=== PATIENT | male | born 1965 | race Caucasian/White ===

== ENCOUNTER 2022-03-26 12:56 | Inpatient (IN) ==
[2022-03-26 13:11] LABS: POC Calcium, Ionized 1.02 (1.16-1.32); POC Creatinine 1.1 (0.6-1.2); POC Potassium 5.5 (3.3-5.1)
[2022-03-26] MEDS ORDERED: 0.9 % SODIUM CHLORIDE 1,000 ML IV ONE (13:25)
--- NOTE | 2022-03-26 13:33 | Emergency Department Note ---
Weakness HPI General Chief complaint: Weakness Stated complaint: faiure to thrive Time Seen by Provider: 03/26/22 13:01 Source: EMS Mode of arrival: EMS Limitations: no limitations History of Present Illness HPI Narrative: Narrative: This is a 57-year-old male with a history of cirrhosis and elevated ammonia presents emergency department with his sister with concerns of failure to thrive weakness and confusion. About 2 weeks ago they decreased his lactulose from 4 times a day to 1 time a day since he was having low potassium. The patient was able to get out of bed yesterday but today he is unable since he is so weak. The sister also says that he was confused this morning and thought that Osman was president. Here in the emergency department he is alert and oriented and knows that he is in [place] as 2021 and that it is Tuesday in March. He denies headache, blurry vision, chest pain, shortness of breath, abdominal pain, fever, chills, nausea, vomiting, diarrhea, black or bloody stools, dysuria, urinary frequency or urgency. Related Data Home Medications Medication Instructions Recorded Confirmed cholecalciferol (vitamin D3) 25 25 mcg PO QDAY 07/14/20 03/10/22 mcg (1,000 unit) capsule methocarbamol 750 mg tablet 750 mg PO 3-4XD PRN 11/30/21 03/10/22 amiloride 5 mg tablet 5 mg PO QID 01/05/22 03/10/22 lactulose 10 gram/15 mL oral 45 ml PO QID 01/05/22 03/10/22 solution (Constulose) Previous Rx's Medication Instructions Recorded blood sugar diagnostic (OneTouch #100 ea 08/12/21 Verio test strips) metformin 500 mg tablet,extended 500 mg PO QDAY 90 days #90 tabs 10/01/21 release 24 hr furosemide 40 mg tablet (Lasix) 40 mg PO QAM #30 tabs 12/07/21 omeprazole 20 mg capsule,delayed See Rx Instructions .Route 01/26/22 release .COMPLEX #90 caps SHOWER CHAIR #1 ea 03/10/22 Allergies Allergy/AdvReac Type Severity Reaction Status Date / Time No Known Drug Allergies Allergy Verified 03/26/22 13:02 Review of Systems ROS ROS Narrative: Narrative: All systems ED: reviewed and negative except as stated. PFSH Narrative Patient History Narrative: Narrative: Medical/Surgical/Family History All Active Problems (Updated 03/26/22 @ 16:42 by Brandon Wade PA-C) Acute hepatic encephalopathy (Acute) Acute hyponatremia (Acute) Acute hypokalemia (Acute) Mclean catheter in place (Acute) Non-alcoholic fatty liver disease (Acute) Hyponatremia (Acute) Increased ammonia level (Acute) Colitis (Acute) Ascites (Acute) Cirrhosis (Acute) Localized swelling of both lower extremities (Acute) Hypertension (Acute) Diabetes mellitus (Acute) Thrombocytopenia (Acute) Hyperlipidemia (Chronic) GERD (gastroesophageal reflux disease) (Chronic) Elevated liver enzymes (Acute) Edema (Acute) Strain of lumbar region (Acute) BMI 35.0-35.9,adult (Acute) Erectile dysfunction (Acute) Degenerative disc disease, cervical (Chronic) History of cholecystectomy (Chronic ~2004) Depression (Chronic) Anxiety (Chronic) Erectile dysfunction of non-organic origin (Chronic) Knee pain (Chronic) Low back pain (Chronic) Neuropathy (Chronic) Lumbar herniated disc (Chronic) Hemorrhoids, external (Chronic) Learning disability (Chronic) Bilateral lower extremity edema (Chronic) Rash and other nonspecific skin eruption (Chronic) Chronic rhinitis (Chronic) Medical History Anxiety Ascites Bilateral lower extremity edema Chronic rhinitis Cirrhosis Depression Diabetes mellitus Erectile dysfunction of non-organic origin GERD (gastroesophageal reflux disease) Hemorrhoids, external Hyperlipidemia Knee pain Learning disability Low back pain Lumbar herniated disc Neuropathy Rash and other nonspecific skin eruption Surgical History History of cholecystectomy (~2004) Family History Mother , age 69 HBP (high blood pressure) Lung cancer Father , age 73 Diabetes HBP (high blood pressure) Grandmother HBP (high blood pressure) maternal and paternal Stroke maternal Glaucoma maternal Osteoporosis maternal Grandfather HBP (high blood pressure) maternal Diabetes paternal Social History Alcohol Intake Frequency: holiday/special occasion only Substance Use: does not use Exam Narrative Narrative: Narrative: General: Alert, in no acute distress, patient does appear weak and needs help sitting up and standing up when I listen to his lungs. Head: No trauma normocephalic Eyes: EOMs intact no scleral icterus or scleral injection Neck: Full range of motion, no midline tenderness ENT: Moist mucous membranes, uvula is midline. No sign of peritonsillar abscess or Prudence's angina. Cardiovascular: Regular rate and rhythm no murmur Respiratory: Clear to auscultation bilaterally. No rhonchi rales or wheezes, no respiratory distress Abdomen pelvis: Abdomen is soft and nontender to palpation. There is no guarding no rebound tenderness. Negative Lane sign. No tenderness over McBurney's point. Neuro: Patient is alert and oriented x3 Psych: Normal affect, normal mood Skin: Warm, no rash, normal color General Limitations: no limitations Course Vital Signs Vital signs: Vital Signs Temperature 97.8 F 03/26/22 13:00 Pulse Rate 90 03/26/22 13:00 Respiratory Rate 16 03/26/22 13:00 Blood Pressure 104/61 03/26/22 13:00 Pulse Oximetry (%) 98 03/26/22 13:00 Oxygen Delivery Method 03/26/22 13:00 Temperature 97.8 F 03/26/22 13:00 Pulse Rate 90 03/26/22 15:15 Respiratory Rate 13 03/26/22 16:15 Blood Pressure 107/66 03/26/22 16:15 Pulse Oximetry (%) 99 03/26/22 15:15 Oxygen Delivery Method 03/26/22 13:00 [facility] MDM Narrative Medical decision making narrative: Narrative: On [id number] Chem-8 the patient does have a hyperkalemia which is mild and hyponatremia. At this point we do not need to give calcium gluconate but will start with 1 L of normal saline. CBC mild anemia BUN is slightly elevated creatinine is normal Magnesium Lipase mildly elevated Hepatic panel stable Ammonia elevated at 91 UA suggestive of urinary tract infection but patient not having any urinary symptoms. I did discuss these findings with the hospitalist Dr. Castañeda EKG normal sinus rhythm no hyperacute T waves Chest x-ray normal chest x-ray. I have given lactulose here in the emergency department. Along with the 1 L of normal saline for the hyperkalemia and for possible dehydration with elevated BUN. Also this can help with the hyponatremia as well. We will admit the patient for hepatic encephalopathy, mild hyperkalemia and hyponatremia. I spoke with the hospitalist Dr. Castañeda who agreed to admit the patient for fu rther evaluation and treatment. Lab Data Result diagrams: 03/26/22 13:29 Labs: Lab Results 03/26/22 03/26/22 03/26/22 Range/Units 13:09 13:28 13:28 WBC (4.5-11.0) K/mcL RBC (4.63-6.08) M/mcL Hgb (13.7-17.5) g/dL Hct (40.1-51.0) % POC Hct 29.0 L (41-55) MCV (80.0-100.0) fL MCH (26.0-34.0) pg MCHC (31.0-36.0) g/dL RDW (11.5-14.5) % Plt Count (140-440) K/mcL MPV (8.8-12.5) fL Immature Gran % (Auto) (0.0-0.5) % Neut % (Auto) (38.0-78.0) % Lymph % (Auto) (15.5-49.0) % [place] % (Auto) (1.0-12.0) % Eos % (Auto) (0.0-7.0) % Baso % (Auto) (0.0-2.0) % Lymph # (Auto) (1.50-4.80) K/mcL [place] # (Auto) (0.10-0.90) K/mcL Eos # (Auto) (0.00-0.70) K/mcL Baso # (Auto) (0.00-0.30) K/mcL Immature Gran # (0.00-0.05) K/mcl Absolute Neutrophils (1.80-8.00) K/mcL PT 18.3 H (11.9-14.5) sec INR 1.5 H (0.9-1.1) APTT 41.5 H (20.0-37.0) sec POC Sodium 126 L (133-145) POC Potassium 5.5 H (3.3-5.1) POC Chloride 98 (96-108) POC Total CO2 21.0 L (22-30) POC BUN 24 H (6-20) POC Creatinine 1.1 (0.6-1.2) POC Glucose 89 (70-105) POC WB Ioniz Calcium 1.02 L (1.16-1.32) Magnesium 1.7 (1.6-2.5) mg/dL Total Bilirubin 2.4 H (0.1-1.0) mg/dL Direct Bilirubin 1.2 H (<0.3) mg/dL AST 159 H (<40) U/L ALT 92 H (<40) U/L Alkaline Phosphatase 337 H (39-117) U/L Ammonia (16-60) umol/L Total Protein 6.8 (5.9-8.4) gm/dL Albumin 2.0 L (3.2-5.2) gm/dL Globulin 4.8 H (2.2-3.7) gm/dL Lipase 115 H (7-60) U/L Urine Color Urine Appearance (Clear) Urine pH (5.0-9.0) Ur Specific [place] (1.000-1.035) Urine Protein (Negative) mg/dL Urine Glucose (UA) (Negative) mg/dL Urine Ketones (Negative) mg/dL Urine Occult Blood (Negative) mg/dL Urine Nitrate (Negative) Urine Bilirubin (Negative) mg/dL Urine Urobilinogen mg/dL Ur Leukocyte Esterase (Negative) /uL Urine RBC (0-3) /hpf Urine WBC (0-4) /hpf Ur Squamous Epith Cells (0-4) /hpf Urine Bacteria (0) /hpf Hyaline Casts (0-2) /lph Urine Mucus (None) /hpf Ur Culture Indicated? 03/26/22 03/26/22 03/26/22 Range/Units 13:29 13:34 14:20 WBC 8.8 (4.5-11.0) K/mcL RBC 2.85 L (4.63-6.08) M/mcL Hgb 10.2 L (13.7-17.5) g/dL Hct 28.8 L (40.1-51.0) % POC Hct (41-55) MCV 101.1 H (80.0-100.0) fL MCH 35.8 H (26.0-34.0) pg MCHC 35.4 (31.0-36.0) g/dL RDW 14.8 H (11.5-14.5) % Plt Count 73 L (140-440) K/mcL MPV 10.0 (8.8-12.5) fL Immature Gran % (Auto) 0.9 H (0.0-0.5) % Neut % (Auto) 72.3 (38.0-78.0) % Lymph % (Auto) 14.9 L (15.5-49.0) % [place] % (Auto) 10.3 (1.0-12.0) % Eos % (Auto) 1.3 (0.0-7.0) % Baso % (Auto) 0.3 (0.0-2.0) % Lymph # (Auto) 1.31 L (1.50-4.80) K/mcL [place] # (Auto) 0.90 (0.10-0.90) K/mcL Eos # (Auto) 0.11 (0.00-0.70) K/mcL Baso # (Auto) 0.03 (0.00-0.30) K/mcL Immature Gran # 0.08 H (0.00-0.05) K/mcl Absolute Neutrophils 6.34 (1.80-8.00) K/mcL PT (11.9-14.5) sec INR (0.9-1.1) APTT (20.0-37.0) sec POC Sodium (133-145) POC Potassium (3.3-5.1) POC Chloride (96-108) POC Total CO2 (22-30) POC BUN (6-20) POC Creatinine (0.6-1.2) POC Glucose (70-105) POC WB Ioniz Calcium (1.16-1.32) Magnesium (1.6-2.5) mg/dL Total Bilirubin (0.1-1.0) mg/dL Direct Bilirubin (<0.3) mg/dL AST (<40) U/L ALT (<40) U/L Alkaline Phosphatase (39-117) U/L Ammonia 91 H (16-60) umol/L Total Protein (5.9-8.4) gm/dL Albumin (3.2-5.2) gm/dL Globulin (2.2-3.7) gm/dL Lipase (7-60) U/L Urine Color [place]zi Urine Appearance Cloudy A (Clear) Urine pH 5.0 (5.0-9.0) Ur Specific [place] 1.011 (1.000-1.035) Urine Protein Negative (Negative) mg/dL Urine Glucose (UA) Negative (Negative) mg/dL Urine Ketones Negative (Negative) mg/dL Urine Occult Blood 0.03 (Negative) mg/dL Urine Nitrate Negative (Negative) Urine Bilirubin Negative (Negative) mg/dL Urine Urobilinogen 2.0 A mg/dL Ur Leukocyte Esterase 500 A (Negative) /uL Urine RBC 2 (0-3) /hpf Urine WBC 81 H (0-4) /hpf Ur Squamous Epith Cells 0 (0-4) /hpf Urine Bacteria Few A (0) /hpf Hyaline Casts 7 H (0-2) /lph Urine Mucus Few A (None) /hpf Ur Culture Indicated? yes EKG Data EKG #1: EKG results narrative: ECG shows normal sinus rhythm at 84 beats minute, left axis deviation, normal SD 1 and QRS QTC is 441. There is no signs of Brugada, Oskhr-Ojmxizqib-Acuge or HOCM. There is no ST segment deviations or hyperacute T waves. My interpretation is normal sinus rhythm. Discharge Plan Patient/Caregiver Discharge Instructions Pt seen by SALES TEAM MANAGER/PA only: Yes Clinical Impression: Acute hepatic encephalopathy, Acute hyponatremia, Acute hypokalemia Patient Disposition: Xfer As Inpt ([facility]) Condition: Serious Follow up with: Evelyn Ramos ARNP [Primary Care Provider] - Prescriptions: No Action (DME) OneTouch Verio test strips Strip See Rx Instructions .Route Qty: 100 6RF Rx Instructions: Testing up to 2x daily furosemide [Lasix] 40 mg tablet 40 mg PO QAM Qty: 30 3RF omeprazole 20 mg capsule,delayed release(DR/EC) See Rx Instructions .ROUTE .COMPLEX Qty: 90 3RF Dose Instruction: take 1 capsule by mouth every morning ON AN EMPTY STOMACH 30 MINUTES BEFORE BREAKFAST Rx Instructions: take 1 capsule by mouth every morning ON AN EMPTY STOMACH 30 MINUTES BEFORE BREAKFAST metformin 500 mg tablet extended release 24 hr 500 mg PO QDAY 90 Days Qty: 90 2RF (DME) SHOWER CHAIR See Rx Instructions .Route .MEDSUPPLY Qty: 1 0RF Rx Instructions: As directed cholecalciferol (vitamin D3) 25 mcg (1,000 unit) capsule 25 mcg PO QDAY methocarbamol 750 mg tablet 750 mg PO 3-4XD PRN lactulose [Constulose] 10 gram/15 mL solution 45 ml PO QID amiloride 5 mg tablet 5 mg PO QID
--- NOTE | 2022-03-26 13:52 | XRay Report ---
CLINICAL INFORMATION: Weakness COMPARISON: 08/08/2021 TECHNIQUE: Portable FINDINGS: The heart size, mediastinum and pulmonary vessels are unremarkable. The lungs are clear. There are no effusions. The bones and soft tissues are within normal limits. IMPRESSION: Normal chest. Interpreted and Authenticated by: Timmy Rader 03/26/22
[2022-03-26] MEDS ORDERED: LACTULOSE 20 GM/30 ML ORAL.SOL PO ONE (14:58)
[2022-03-26 15:01] LABS: Basophils # (Auto) 0.03 K/mcL (0.00-0.30); Basophils % (Auto) 0.3 % (0.0-2.0); Eosinophils # (Auto) 0.11 K/mcL (0.00-0.70); Eosinophils % (Auto) 1.3 % (0.0-7.0); Hematocrit 28.8 % (40.1-51.0); Hemoglobin 10.2 g/dL (13.7-17.5); Lymphocytes # (Auto) 1.31 K/mcL (1.50-4.80); Lymphocytes % (Auto) 14.9 % (15.5-49.0); Mean Cell Volume 101.1 fL (80.0-100.0); Mean Corpuscular HGB Conc 35.4 g/dL (31.0-36.0); Monocytes % (Auto) 10.3 % (1.0-12.0); Neutrophils % (Auto) 72.3 % (38.0-78.0); Platelet Count 73 K/mcL (140-440); RBC 2.85 M/mcL (4.63-6.08); Red Cell Distribution Width 14.8 % (11.5-14.5); WBC 8.8 K/mcL (4.5-11.0)
[2022-03-26 15:18] LABS: ALT/SGPT 92 U/L (<40); AST/SGOT 159 U/L (<40); Alkaline Phosphatase 337 U/L (39-117); Bilirubin,Direct 1.2 mg/dL (<0.3); Bilirubin,Total 2.4 mg/dL (0.1-1.0); Globulin 4.8 gm/dL (2.2-3.7)
[2022-03-26 15:25] LABS: INR 1.5 (0.9-1.1); Partial Thromboplastin Time 41.5 sec (20.0-37.0); Prothrombin Time 18.3 sec (11.9-14.5)
[2022-03-26 15:29] LABS: Appearance,Urine CLOUDY (Clear); Bacteria,Urine FEW /hpf (0); Bilirubin,Urine Negative (Negative); Color,Urine AMBER; Culture Indicated,Urine yes; Glucose,Urine (UA) Negative (Negative); Ketones,Urine Negative (Negative); Leukocyte Esterase,Urine 500 /uL (Negative); Mucus,Urine FEW /hpf; Nitrate,Urine Negative (Negative); Protein,Urine Negative (Negative); Specific Gravity,Urine 1.011 (1.000-1.035); Urine Blood 0.03 mg/dL (Negative); Urine Hyaline Cast 7 /lph (0-2); Urine RBC 2 /hpf (0-3); Urine Squamous Epithelial Cell 0 /hpf (0-4); Urine WBC 81 /hpf (0-4)
--- NOTE | 2022-03-26 16:15 | Internal Med History&Physical ---
HPI History of Present Illness Patient information: Note initiated : 03/26/22 at 3:57 pm Service Date, if different from initiated Date: [] Patient: Mauro Sevilla a 57 y/o M admitted on for faiure to thrive. Chief Complaint: [] History of present illness: Mr. Sevilla is a 57 year old M Patient brought in by EMS for failure to thrive weakness lethargy and confusion. I believe his sister called the ambulance. Sister had to leave and so history is obtained from the chart and the patient, who is a poor historian. Per the notes she is become increasingly weak and lethargic and unable to move. Sister also reported that he had some confusion this morning. Sounds like the patient and sister are in discussion with the PCP about day hospice evaluation, they have not committed to hospice want to have an informational. Patient was recently at [facility] in February for 3 days for Hepatic Encephalopathy. He is on lactulose which was decreased not too long ago because of hypokalemia. He was also prescribed rifaximin but has not been taking that because of the cost. He started seeing Dr. Rocha who is trying to figure out a way to get him rifaximin. Patient has been going to [facility] every week to get paracentesis done, the last one was done on the with 3 L. Patient history of nonalcoholic fatty liver disease with subsequent cirrhosis and multiple episodes of hepatic encephalopathy. He has a history of noncompliance with his lactulose. In the ER labs show a hemoglobin of 10 with platelets of 73. INR 1.5 sodium of 126 with a history of mild chronic hyponatremia likely related to cirrhosis. And mild hyperkalemia 5.5 with a BUN 24 and creatinine 1.1. Elevated bilirubin and transaminases which are similar to her previous labs. Ammonia level was 91. Urinalysis with leukocyte esterase WBCs. Review of Systems: Pertinent positives as above plus reports being extremely tired otherwise no other complaints. Denies headache/fever/chills/nausea/vomiting/chest or abdominal pain/cough/dyspnea. Remaining 10 point review of system reviewed negative PFSH PFSH All Active Problems Mclean catheter in place (Acute) Non-alcoholic fatty liver disease (Acute) Hyponatremia (Acute) Increased ammonia level (Acute) Colitis (Acute) Ascites (Acute) Cirrhosis (Acute) Localized swelling of both lower extremities (Acute) Hypertension (Acute) Diabetes mellitus (Acute) Thrombocytopenia (Acute) Hyperlipidemia (Chronic) GERD (gastroesophageal reflux disease) (Chronic) Elevated liver enzymes (Acute) Edema (Acute) Strain of lumbar region (Acute) BMI 35.0-35.9,adult (Acute) Erectile dysfunction (Acute) Degenerative disc disease, cervical (Chronic) History of cholecystectomy (Chronic ~2004) Depression (Chronic) Anxiety (Chronic) Erectile dysfunction of non-organic origin (Chronic) Knee pain (Chronic) Low back pain (Chronic) Neuropathy (Chronic) Lumbar herniated disc (Chronic) Hemorrhoids, external (Chronic) Learning disability (Chronic) Bilateral lower extremity edema (Chronic) Rash and other nonspecific skin eruption (Chronic) Chronic rhinitis (Chronic) Medical History Anxiety Ascites Bilateral lower extremity edema Chronic rhinitis Cirrhosis Depression Diabetes mellitus Erectile dysfunction of non-organic origin GERD (gastroesophageal reflux disease) Hemorrhoids, external Hyperlipidemia Knee pain Learning disability Low back pain Lumbar herniated disc Neuropathy Rash and other nonspecific skin eruption Surgical History History of cholecystectomy (~2004) Family History Mother , age 69 HBP (high blood pressure) Lung cancer Father , age 73 Diabetes HBP (high blood pressure) Grandmother HBP (high blood pressure) maternal and paternal Stroke maternal Glaucoma maternal Osteoporosis maternal Grandfather HBP (high blood pressure) maternal Diabetes paternal Social History household members: significant other lives independently: No marital status: single education level: high school occupational status: unemployed occupation: [employer]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 has 2 dogs physical activity: none alcohol intake frequency: holiday/special occasion only substance use type: does not use MEDS/ALLERGIES Home Medications and Allergies Home Medications Medication Instructions Recorded Confirmed Type cholecalciferol (vitamin D3) 25 25 mcg PO QDAY 07/14/20 03/10/22 History mcg (1,000 unit) capsule blood sugar diagnostic (OneTouch #100 ea 08/12/21 03/10/22 Rx Verio test strips) metformin 500 mg tablet,extended 500 mg PO QDAY 90 days #90 tabs 10/01/21 03/10/22 Rx release 24 hr methocarbamol 750 mg tablet 750 mg PO 3-4XD PRN 11/30/21 03/10/22 History furosemide 40 mg tablet (Lasix) 40 mg PO QAM #30 tabs 12/07/21 03/10/22 Rx amiloride 5 mg tablet 5 mg PO QID 01/05/22 03/10/22 History lactulose 10 gram/15 mL oral 45 ml PO QID 01/05/22 03/10/22 History solution (Constulose) omeprazole 20 mg capsule,delayed See Rx Instructions .Route 01/26/22 03/10/22 Rx release .COMPLEX #90 caps SHOWER CHAIR #1 ea 03/10/22 03/10/22 Rx Allergies Allergy/AdvReac Type Severity Reaction Status Date / Time No Known Drug Allergies Allergy Verified 03/26/22 13:02 EXAM Constitutional Vitals: Temp Pulse Resp BP Pulse Ox O2 Del Method 97.8 F 90 18 85/68 99 03/26/22 13:00 03/26/22 15:15 03/26/22 15:46 03/26/22 15:46 03/26/22 15:15 03/26/22 13:00 Exam: General: Alert, Awake, No acute Distress, cachexia including Temporalis muscle wasting Eyes/N/T: EOMI, PERRL, dry MM Head/Neck: neck supple, normocephalic atraumatic CV: Mild tachycardia but regular, No murmurs, normal s1/s2 Pulm: Clear b/l, no wheezing/rhonchi/rales Abd: soft, mildly distended, nontender, +BS x4 Ext: no clubbing/cyanosis, trace-1+ b/l LE edema Neuro: Alert, no focal deficits, moves all extremities, CN 2-12 grossly intact, symmetrical strength b/l upper/lower, sensations intact b/l upper/lower Skin: warm/dry DATA Data Completed and Pending Labs: Labs from last 24 hours 03/26/22 03/26/22 03/26/22 14:20 13:34 13:29 WBC 8.8 RBC 2.85 L Hgb 10.2 L Hct 28.8 L POC Hct MCV 101.1 H MCH 35.8 H MCHC 35.4 RDW 14.8 H Plt Count 73 L MPV 10.0 Immature Gran % (Auto) 0.9 H Neut % (Auto) 72.3 Lymph % (Auto) 14.9 L [place] % (Auto) 10.3 Eos % (Auto) 1.3 Baso % (Auto) 0.3 Lymph # (Auto) 1.31 L [place] # (Auto) 0.90 Eos # (Auto) 0.11 Baso # (Auto) 0.03 Immature Gran # 0.08 H Absolute Neutrophils 6.34 PT INR APTT POC Sodium POC Potassium POC Chloride POC Total CO2 POC BUN POC Creatinine POC Glucose POC WB Ioniz Calcium Magnesium Total Bilirubin Direct Bilirubin AST ALT Alkaline Phosphatase Ammonia 91 H Total Protein Albumin Globulin Lipase Urine Color Suzi Urine Appearance Cloudy A Urine pH 5.0 Ur Specific [place] 1.011 Urine Protein Negative Urine Glucose (UA) Negative Urine Ketones Negative Urine Occult Blood 0.03 Urine Nitrate Negative Urine Bilirubin Negative Urine Urobilinogen 2.0 A Ur Leukocyte Esterase 500 A Urine RBC 2 Urine WBC 81 H Ur Squamous Epith Cells 0 Urine Bacteria Few A Hyaline Casts 7 H Urine Mucus Few A Ur Culture Indicated? yes 03/26/22 03/26/22 03/26/22 13:28 13:28 13:09 WBC RBC Hgb Hct POC Hct 29.0 L MCV MCH MCHC RDW Plt Count MPV Immature Gran % (Auto) Neut % (Auto) Lymph % (Auto) [place] % (Auto) Eos % (Auto) Baso % (Auto) Lymph # (Auto) [place] # (Auto) Eos # (Auto) Baso # (Auto) Immature Gran # Absolute Neutrophils PT 18.3 H INR 1.5 H APTT 41.5 H POC Sodium 126 L POC Potassium 5.5 H POC Chloride 98 POC Total CO2 21.0 L POC BUN 24 H POC Creatinine 1.1 POC Glucose 89 POC WB Ioniz Calcium 1.02 L Magnesium 1.7 Total Bilirubin 2.4 H Direct Bilirubin 1.2 H AST 159 H ALT 92 H Alkaline Phosphatase 337 H Ammonia Total Protein 6.8 Albumin 2.0 L Globulin 4.8 H Lipase 115 H Urine Color Urine Appearance Urine pH Ur Specific [place] Urine Protein Urine Glucose (UA) Urine Ketones Urine Occult Blood Urine Nitrate Urine Bilirubin Urine Urobilinogen Ur Leukocyte Esterase Urine RBC Urine WBC Ur Squamous Epith Cells Urine Bacteria Hyaline Casts Urine Mucus Ur Culture Indicated? A/P Narrative A/P Narrative: A: *Hepatic Encephalopathy, mild: *Failure to thrive/generalized weakness/deconditioning: *Severe protein calorie malnutrition: Muscle and fat loss *Hyponatremia, acute on chronic: *Hyperkalemia: on potassium sparing diuretics *Volume depletion: *UTI: *NAFLD >> Cirrhsosis: -with sequelae of thrombocytopenia/coagulopathy/hyperbilirubinemia/transaminitis/hypoalbuminemia/a nemia -MELD= 24(3-month mortality risk is 20%); CHILD-FLETCHER=class C(45&35%, 1&2- year survival rates) *Thrombocytopenia/anemia: 2/2 above *Coagulopathy: *Hyperbilirubinemia/transaminitis: 2/2 liver disease, stable *DM: *GERD: * P: -lactulose -s/p IVF in ED, hold diuretics today, hold amiloride for hyperkalemia -dietary -f/u electrolytes -pt/ot -hyperkalemia treatment -prealbumin -ssi -Rocephin, pending - and Hospice eval -Home medication reconciliation -ppx: lovenox (if plts<50k then hold) / Time Spent With Patient Time: Total time spent is greater than 50% in coordination of care (as documented) at patient's floor/unit and/or counseling patient: Total time spent with greater than 50% in coordination of care (as documented) at patient's floor/unit and/or counseling patient:: Greater than 70 minutes
[2022-03-26] MEDS ORDERED: IPRATROPIUM/ALBUTEROL 3 ML AMPUL.NEB NEB PRN (17:32)
[2022-03-26] MEDS ORDERED: POTASSIUM CHLORIDE 20 MEQ TABLET PO PRN (17:32)
[2022-03-26] MEDS ORDERED: LACTULOSE 20 GM/30 ML ORAL.SOL PO PRN (17:32)
[2022-03-26] MEDS ORDERED: MAGNESIUM SULFATE 2 GM/50 ML BAG IV PRN (17:32)
[2022-03-26] MEDS ORDERED: POTASSIUM CHLORIDE 40 MEQ in DEXTROSE 5% IN WATER 500 ML IV PRN (17:32)
[2022-03-26] MEDS ORDERED: DEXTROSE 31 GM ORAL.SUSP PO PRN (17:32)
[2022-03-26] MEDS ORDERED: SODIUM POLYSTYRENE SULFONATE 15 GM/60 ML SUSPENSION PO ONE (17:32)
[2022-03-26] MEDS ORDERED: ONDANSETRON 4 MG/2 ML VIAL IV PRN (17:32)
[2022-03-26] MEDS ORDERED: DEXTROSE 50% 50 ML VIAL IV PRN (17:32)
[2022-03-26] MEDS ORDERED: cefTRIAXone 1 GM in DEXTROSE 5% IN WATER 50 ML IV SCH (17:32)
[2022-03-26] MEDS: INSULIN LISPRO 1 UNIT/0.01 ML UNIT SQ SCH ×2 (19:18→21:04)
[2022-03-26] MEDS: cefTRIAXone 1 GM VIAL IV SCH (21:11)
[2022-03-26] MEDS: LACTULOSE 20 GM/30 ML ORAL.SOL PO SCH (21:11)
[2022-03-26] MEDS: FAMOTIDINE 20 MG TABLET PO SCH (21:12)
[2022-03-26] MEDS: 0.9 % SODIUM CHLORIDE 10 ML SYRINGE IV SCH (21:12)
[2022-03-27] MEDS: 0.9 % SODIUM CHLORIDE 10 ML SYRINGE IV SCH ×3 (05:20→20:31)
[2022-03-27 06:48] LABS: Basophils # (Auto) 0.04 K/mcL (0.00-0.30); Basophils % (Auto) 0.4 % (0.0-2.0); Eosinophils # (Auto) 0.18 K/mcL (0.00-0.70); Eosinophils % (Auto) 1.6 % (0.0-7.0); Hematocrit 27.9 % (40.1-51.0); Hemoglobin 9.8 g/dL (13.7-17.5); Lymphocytes # (Auto) 0.88 K/mcL (1.50-4.80); Lymphocytes % (Auto) 7.9 % (15.5-49.0); Mean Cell Volume 101.1 fL (80.0-100.0); Mean Corpuscular HGB Conc 35.1 g/dL (31.0-36.0); Mean Platelet Volume 9.7 fL (8.8-12.5); Monocytes # (Auto) 1.28 K/mcL (0.10-0.90); Monocytes % (Auto) 11.5 % (1.0-12.0); Neutrophils % (Auto) 77.8 % (38.0-78.0); Platelet Count 83 K/mcL (140-440); RBC 2.76 M/mcL (4.63-6.08); Red Cell Distribution Width 15.5 % (11.5-14.5); WBC 11.2 K/mcL (4.5-11.0)
[2022-03-27 07:17] LABS: ALT/SGPT 86 U/L (<40); AST/SGOT 137 U/L (<40); Albumin 1.9 gm/dL (3.2-5.2); Albumin/Globulin Ratio 0.4 (1.0-2.3); Alkaline Phosphatase 330 U/L (39-117); Bilirubin,Direct 1.2 mg/dL (<0.3); Bilirubin,Total 2.2 mg/dL (0.1-1.0); Blood Urea Nitrogen 18 mg/dL (6-20); Calcium 8.5 mg/dL (8.6-10.4); Carbon Dioxide 20 mmol/L (22-30); Chloride 98 mmol/L (96-108); Globulin 4.9 gm/dL (2.2-3.7); Glomerular Filtration Rate 82; Glucose 98 mg/dL (70-105); Lactate Dehydrogenase 191 U/L (135-225); Triglycerides 61 mg/dL (<150); Uric Acid 5.4 mg/dL (2.5-8.0)
[2022-03-27] MEDS: INSULIN LISPRO 1 UNIT/0.01 ML UNIT SQ SCH ×4 (08:05→20:30)
[2022-03-27] MEDS ORDERED: METHOCARBAMOL 750 MG TABLET PO PRN (08:33)
[2022-03-27] MEDS ORDERED: SODIUM CHLORIDE 1 GM TABLET PO ONE ×2 (08:36→12:00)
--- NOTE | 2022-03-27 08:38 | Internal Med Progress Note ---
SUBJECTIVE Subjective Patient information: Note initiated : 03/27/22 at 8:32 am Service Date, if different from initiated Date: [] Patient: Mauro Sevilla a 57 y/o M admitted on 03/26/22 for faiure to thrive. Chief Complaint: [] Interval history: History of present illness: Mr. Sevilla is a 57 year old M Patient brought in by EMS for failure to thrive weakness lethargy and confusion. I believe his sister called the ambulance. Sister had to leave and so history is obtained from the chart and the patient, who is a poor historian. Per the notes she is become increasingly weak and lethargic and unable to move. Sister also reported that he had some confusion this morning. Sounds like the patient and sister are in discussion with the PCP about day hospice evaluation, they have not committed to hospice want to have an informational. Patient was recently at [facility] in February for 3 days for Hepatic Encephalopathy. He is on lactulose which was decreased not too long ago because of hypokalemia. He was also prescribed rifaximin but has not been taking that because of the cost. He started seeing Dr. Rocha who is trying to figure out a way to get him rifaximin. Patient has been going to [facility] every week to get paracentesis done, the last one was done on the with 3 L. Patient history of nonalcoholic fatty liver disease with subsequent cirrhosis and multiple episodes of hepatic encephalopathy. He has a history of noncompliance with his lactulose. In the ER labs show a hemoglobin of 10 with platelets of 73. INR 1.5 sodium of 126 with a history of mild chronic hyponatremia likely related to cirrhosis. And mild hyperkalemia 5.5 with a BUN 24 and creatinine 1.1. Elevated bilirubin and transaminases which are similar to her previous labs. Ammonia level was 91. Urinalysis with leukocyte esterase WBCs. 03/27 Says he slept well and was feeling about the same as yesterday. Ammonia level responded to the lactulose. Sodium 127. Restarting Lasix. Titrate lactulose to 2-3 soft bowel meds per day. Review of Systems: denies headache/fever/chills/nausea/vomiting/chest or abdominal pain/ cough/dyspnea. Otherwise see above. Constitutional Vitals: Vital Signs Temp Pulse Resp BP Pulse Ox O2 Del Method O2 Flow Rate 97.5 F 85 12 103/59 98 0 03/27/22 08:00 03/27/22 08:00 03/27/22 08:00 03/27/22 08:00 03/27/22 08:00 03/27/22 04:00 03/26/22 18:30 Period Temp Pulse Resp BP Sys/Dee Pulse Ox O2 Del Method O2 Flow Rate Last 24 Hr 97.5 F-98.2 F 81-103 9-24 85-125/56-76 96-100 Room Air-Room Air 0 Intake and Output 03/26/22 03/27/22 03/27/22 21:59 05:59 13:59 Intake Total 1600 Output Total 0 1500 Balance 1600 -1500 Weight 64.592 kg Intake & Output: Intake & Output 03/26/22 03/27/22 03/27/22 21:59 05:59 13:59 Intake Total 1600 Output Total 0 1500 Balance 1600 -1500 Weight 64.592 kg Intake: IV 1000 Sodium Chloride 0.9% 1,000 ml @ 1000 Wide Open IV BOLUS ONE Rx#: [id number] Oral 600 Output: Void Amount 0 Urine/Stool Mix 1500 Other: Meal snack Percent of Meal Consumed 100% Feeding Ability Assist with Tray Set Up Stool Size Large Stool Color Brown Stool Consistency Liquid Watery Exam: General: Alert, Awake, No acute Distress, cachexia including Temporalis muscle wasting Eyes/N/T: EOMI, Head/Neck: neck supple, CV: RRR, No murmurs, Pulm: Clear b/l, no wheezing/rhonchi/rales Abd: soft, mildly distended, nontender, +BS x4 Ext: no clubbing/cyanosis, trace-1+ b/l LE edema Neuro: Alert, no focal deficits, moves all extremities, Skin: warm/dry OBJ DATA Labs CBC & Chem 7: 03/27/22 05:47 03/27/22 05:47 Labs: Abnormal Lab Results 03/27/22 03/27/22 03/26/22 05:47 05:47 14:20 WBC 11.2 H RBC 2.76 L Hgb 9.8 L Hct 27.9 L POC Hct MCV 101.1 H MCH 35.5 H RDW 15.5 H Plt Count 83 L Immature Gran % (Auto) 0.8 H Lymph % (Auto) 7.9 L Lymph # (Auto) 0.88 L [place] # (Auto) 1.28 H Immature Gran # 0.09 H Absolute Neutrophils 8.69 H PT INR APTT POC Sodium Sodium 127 L POC Potassium Carbon Dioxide 20 L POC Total CO2 POC BUN Calcium 8.5 L POC WB Ioniz Calcium Total Bilirubin 2.2 H Direct Bilirubin 1.2 H GGT 160 H AST 137 H ALT 86 H Alkaline Phosphatase 330 H Ammonia Albumin 1.9 L Globulin 4.9 H Albumin/Globulin Ratio 0.4 L Prealbumin Lipase Urine Appearance Cloudy A Urine Urobilinogen 2.0 A Ur Leukocyte Esterase 500 A Urine WBC 81 H Urine Bacteria Few A Hyaline Casts 7 H Urine Mucus Few A 03/26/22 03/26/22 03/26/22 13:34 13:29 13:28 WBC RBC 2.85 L Hgb 10.2 L Hct 28.8 L POC Hct MCV 101.1 H MCH 35.8 H RDW 14.8 H Plt Count 73 L Immature Gran % (Auto) 0.9 H Lymph % (Auto) 14.9 L Lymph # (Auto) 1.31 L [place] # (Auto) Immature Gran # 0.08 H Absolute Neutrophils PT INR APTT POC Sodium Sodium POC Potassium Carbon Dioxide POC Total CO2 POC BUN Calcium POC WB Ioniz Calcium Total Bilirubin Direct Bilirubin GGT AST ALT Alkaline Phosphatase Ammonia 91 H Albumin Globulin Albumin/Globulin Ratio Prealbumin < 3.0 L Lipase Urine Appearance Urine Urobilinogen Ur Leukocyte Esterase Urine WBC Urine Bacteria Hyaline Casts Urine Mucus 03/26/22 03/26/22 03/26/22 13:28 13:28 13:09 WBC RBC Hgb Hct POC Hct 29.0 L MCV MCH RDW Plt Count Immature Gran % (Auto) Lymph % (Auto) Lymph # (Auto) [place] # (Auto) Immature Gran # Absolute Neutrophils PT 18.3 H INR 1.5 H APTT 41.5 H POC Sodium 126 L Sodium POC Potassium 5.5 H Carbon Dioxide POC Total CO2 21.0 L POC BUN 24 H Calcium POC WB Ioniz Calcium 1.02 L Total Bilirubin 2.4 H Direct Bilirubin 1.2 H GGT AST 159 H ALT 92 H Alkaline Phosphatase 337 H Ammonia Albumin 2.0 L Globulin 4.8 H Albumin/Globulin Ratio Prealbumin Lipase 115 H Urine Appearance Urine Urobilinogen Ur Leukocyte Esterase Urine WBC Urine Bacteria Hyaline Casts Urine Mucus Meds: Medications Albuterol/Ipratropium (Ipratropium/Albuterol 3 Ml Ampul.Neb) 3 ml NEB Q4HP PRN PRN Reason: Shortness Of Breath Ceftriaxone Sodium (Ceftriaxone 1 Gm Vial) 1 gm IV Q24H [facility] Last Admin: 03/26/22 21:11 Dose: 1 gm Dextrose (Dextrose 50% 50 Ml Vial) 0 ml IV UD PRN PRN Reason: Per Sliding Scale Diagnostic Test (Pha) (Accu-Chek 1 Each Strip) 1 each FS ACHS [facility] Last Admin: 03/27/22 08:05 Dose: 1 each Enoxaparin Sodium (Enoxaparin 40 Mg/0.4 Ml Syringe) 40 mg SQ DAILY [facility] Famotidine (Famotidine 20 Mg Tablet) 20 mg PO BID [facility] Last Admin: 03/26/22 21:12 Dose: 20 mg Glucose (Dextrose 31 Gm Oral.Susp) 15 gm PO PRN PRN PRN Reason: Hypoglycemia Potassium Chloride 40 meq/ (Dextrose) 520 mls @ 130 mls/hr IV UD PRN PRN Reason: Potassium < 3 Magnesium Sulfate (Magnesium Sulfate) 2 gm in 50 mls @ 50 mls/hr IV UD PRN PRN Reason: Magnesium </= 1.6 Insulin Human Lispro (Insulin Lispro 1 Unit/0.01 Ml Unit) 0 unit SQ ACHS [facility]; Protocol Last Admin: 03/27/22 08:05 Dose: Not Given Lactulose (Lactulose 20 Gm/30 Ml Oral.Nikki) 20 gm PO TID [facility] Last Admin: 03/26/22 21:11 Dose: 20 gm Lactulose (Lactulose 20 Gm/30 Ml Oral.Nikki) 20 gm PO Q2HP PRN PRN Reason: for 2-3 soft BM's per day Ondansetron HCl (Ondansetron 4 Mg/2 Ml Vial) 4 mg IV Q4HP PRN PRN Reason: Nausea And Vomiting Potassium Chloride (Potassium Chloride 20 Meq Tablet) 40 meq PO UD PRN PRN Reason: Potssium is 3-3.5 Potassium Chloride (Potassium Chloride 20 Meq Tablet) 40 meq PO UD PRN PRN Reason: Potassium < 3 Sodium Chloride (0.9 % Sodium Chloride 10 Ml Syringe) 10 ml IV Q8 [facility] Last Admin: 03/27/22 05:20 Dose: 10 ml A/P Narrative A/P Narrative: A: *Hepatic Encephalopathy, mild: *Failure to thrive/generalized weakness/deconditioning: *Severe protein calorie malnutrition: Muscle and fat loss -prealbumin<3 *Hyponatremia, acute on chronic: *Hyperkalemia: on potassium sparing diuretics and kcl, improving *Volume depletion: improved *UTI: *NAFLD >> Cirrhsosis: -with sequelae of thromboc ytopenia/coagulopathy/hyperbilirubinemia/transaminitis/hypoalbuminemia/anemia -MELD= 24(3-month mortality risk is 20%); CHILD-FLETCHER=class C(45&35%, 1&2- year survival rates) *Thrombocytopenia/Anemia: 2/2 above *Coagulopathy: *Hyperbilirubinemia/Transaminitis: 2/2 liver disease, stable *DM: *GERD: P: -lactulose -s/p IVF in ED, hold amiloride/klc for hyperkalemia -restart lasix -dietary -f/u electrolytes -pt/ot -ssi -Rocephin, pending - and Hospice eval -ppx: lovenox (if plts<50k then hold) / Time Spent With Patient Time: Total time spent is greater than 50% in coordination of care (as documented) at patient's floor/unit and/or counseling patient: Total time spent with greater than 50% in coordination of care (as documented) at patient's floor/unit and/or counseling patient:: 35 - 50 minutes
[2022-03-27] MEDS: LACTULOSE 20 GM/30 ML ORAL.SOL PO SCH ×3 (09:02→20:21)
[2022-03-27] MEDS: TAMSULOSIN 0.4 MG CAPSULE PO SCH (09:02)
[2022-03-27] MEDS: FUROSEMIDE 40 MG TABLET PO SCH (09:03)
[2022-03-27] MEDS: FAMOTIDINE 20 MG TABLET PO SCH ×2 (09:03→20:31)
[2022-03-27] MEDS: THIAMINE 100 MG TABLET PO SCH (09:03)
[2022-03-27] MEDS: FOLIC ACID 1 MG TABLET PO SCH (09:03)
[2022-03-27] MEDS: ENOXAPARIN 40 MG/0.4 ML SYRINGE SQ SCH ×2 (09:03→10:36)
[2022-03-27] MEDS: cefTRIAXone 1 GM VIAL IV SCH (09:03)
--- NOTE | 2022-03-27 11:07 | Discharge Summary ---
Discharge Provider Provider IMPORTANT FOLLOW-UP INFORMATION FOR PCP: Patient information: Note initiated : 03/27/22 at 11:05 am Service Date, if different from initiated Date: [] Patient: Mauro Sevilla 57 y/o M admitted on 03/26/22 for faiure to thrive. Chief Complaint: [] Date of admission: 03/26/22 17:30 Primary care physician: ANTHONY Parsons Consults: 03/26/22 Consult to Physician [CONS] Stat Comment: Consulting Provider: Severiano Castañeda Reason For Exam: Physician to Consult COURSE Hospital Course Hospital course: History of present illness: Mr. Sevilla is a 57 year old M Patient brought in by EMS for failure to thrive weakness lethargy and confusion. I believe his sister called the ambulance. Sister had to leave and so history is obtained from the chart and the patient, who is a poor historian. Per the notes she is become increasingly weak and lethargic and unable to move. Sister also reported that he had some confusion this morning. Sounds like the patient and sister are in discussion with the PCP about day hospice evaluation, they have not committed to hospice want to have an informational. Patient was recently at [facility] in February for 3 days for Hepatic Encephalopathy. He is on lactulose which was decreased not too long ago because of hypokalemia. He was also prescribed rifaximin but has not been taking that because of the cost. He started seeing Dr. Rocha who is trying to figure out a way to get him rifaximin. Patient has been going to [facility] every week to get paracentesis done, the last one was done on the with 3 L. Patient history of nonalcoholic fatty liver disease with subsequent cirrhosis and multiple episodes of hepatic encephalopathy. He has a history of noncompliance with his lactulose. In the ER labs show a hemoglobin of 10 with platelets of 73. INR 1.5 sodium of 126 with a history of mild chronic hyponatremia likely related to cirrhosis. And mild hyperkalemia 5.5 with a BUN 24 and creatinine 1.1. Elevated bilirubin and transaminases which are similar to her previous labs. Ammonia level was 91. Urinalysis with leukocyte esterase WBCs. 03/27 Says he slept well and was feeling about the same as yesterday. Ammonia level responded to the lactulose. Sodium 127. Restarting Lasix. Titrate lactulose to 2-3 soft bowel meds per day. High risk for readmission given significant comorbidities A: *Hepatic Encephalopathy, mild: *Failure to thrive/generalized weakness/deconditioning: *Severe protein calorie malnutrition: Muscle and fat loss -prealbumin<3 *Hyponatremia, acute on chronic: *Hyperkalemia: on potassium sparing diuretics and kcl, improving *Volume depletion: improved *UTI: *NAFLD >> Cirrhsosis: -with sequelae of thrombocytopenia/coagulopathy/hyperbilirubinemia/transaminitis/hypoalbuminemia/a nemia -MELD= 24(3-month mortality risk is 20%); CHILD-FLETCHER=class C(45&35%, 1&2- year survival rates) *Thrombocytopenia/Anemia: 2/2 above *Coagulopathy: *Hyperbilirubinemia/Transaminitis: 2/2 liver disease, stable *DM: *GERD: P: -d/c home KCl for hyperkalemia -abx, pending UC Discharge diagnosis: Hepatic encephalopathy failure to thrive deconditioning severe protein desean Secondary discharge diagnosis: Hyponatremia hyperkalemia volume depletion UTI cirrhosis thrombocytopenia anemia coagulopathy hyperbilirubinemia transaminitis diabetes GERD Time Spent with Patient Time attestation: Total time spent providing and/or coordinating discharge services: Time spent: Greater than 30 minutes EXAM Constitutional Vitals: Temp Pulse Resp BP Pulse Ox O2 Del Method O2 Flow Rate 97.5 F 85 13 100/69 99 0 03/27/22 08:00 03/27/22 08:00 03/27/22 10:00 03/27/22 10:00 03/27/22 10:00 03/27/22 04:00 03/26/22 18:30 Discharge Data Data Completed and Pending Labs on day of discharge: Labs from last 24 hours 03/27/22 03/27/22 03/27/22 05:47 05:47 05:47 WBC 11.2 H RBC 2.76 L Hgb 9.8 L Hct 27.9 L POC Hct MCV 101.1 H MCH 35.5 H MCHC 35.1 RDW 15.5 H Plt Count 83 L MPV 9.7 Immature Gran % (Auto) 0.8 H Neut % (Auto) 77.8 Lymph % (Auto) 7.9 L [place] % (Auto) 11.5 Eos % (Auto) 1.6 Baso % (Auto) 0.4 Lymph # (Auto) 0.88 L [place] # (Auto) 1.28 H Eos # (Auto) 0.18 Baso # (Auto) 0.04 Immature Gran # 0.09 H Absolute Neutrophils 8.69 H PT INR APTT POC Sodium Sodium 127 L POC Potassium Potassium 4.3 POC Chloride Chloride 98 Carbon Dioxide 20 L POC Total CO2 Anion Gap 9.0 POC BUN BUN 18 Creatinine 1.0 POC Creatinine GFR Calculation 82 Glucose 98 POC Glucose Uric Acid 5.4 Calcium 8.5 L POC WB Ioniz Calcium Phosphorus 3.0 Magnesium 1.7 Total Bilirubin 2.2 H Direct Bilirubin 1.2 H GGT 160 H AST 137 H ALT 86 H Alkaline Phosphatase 330 H Ammonia 38 Lactate Dehydrogenase 191 Total Protein 6.8 Albumin 1.9 L Globulin 4.9 H Albumin/Globulin Ratio 0.4 L Prealbumin Triglycerides 61 Lipase Urine Color Urine Appearance Urine pH Ur Specific [place] Urine Protein Urine Glucose (UA) Urine Ketones Urine Occult Blood Urine Nitrate Urine Bilirubin Urine Urobilinogen Ur Leukocyte Esterase Urine RBC Urine WBC Ur Squamous Epith Cells Urine Bacteria Hyaline Casts Urine Mucus Ur Culture Indicated? 03/26/22 03/26/22 03/26/22 14:20 13:34 13:29 WBC 8.8 RBC 2.85 L Hgb 10.2 L Hct 28.8 L POC Hct MCV 101.1 H MCH 35.8 H MCHC 35.4 RDW 14.8 H Plt Count 73 L MPV 10.0 Immature Gran % (Auto) 0.9 H Neut % (Auto) 72.3 Lymph % (Auto) 14.9 L [place] % (Auto) 10.3 Eos % (Auto) 1.3 Baso % (Auto) 0.3 Lymph # (Auto) 1.31 L [place] # (Auto) 0.90 Eos # (Auto) 0.11 Baso # (Auto) 0.03 Immature Gran # 0.08 H Absolute Neutrophils 6.34 PT INR APTT POC Sodium Sodium POC Potassium Potassium POC Chloride Chloride Carbon Dioxide POC Total CO2 Anion Gap POC BUN BUN Creatinine POC Creatinine GFR Calculation Glucose POC Glucose Uric Acid Calcium POC WB Ioniz Calcium Phosphorus Magnesium Total Bilirubin Direct Bilirubin GGT AST ALT Alkaline Phosphatase Ammonia 91 H Lactate Dehydrogenase Total Protein Albumin Globulin Albumin/Globulin Ratio Prealbumin Triglycerides Lipase Urine Color [place] Urine Appearance Cloudy A Urine pH 5.0 Ur Specific [place] 1.011 Urine Protein Negative Urine Glucose (UA) Negative Urine Ketones Negative Urine Occult Blood 0.03 Urine Nitrate Negative Urine Bilirubin Negative Urine Urobilinogen 2.0 A Ur Leukocyte Esterase 500 A Urine RBC 2 Urine WBC 81 H Ur Squamous Epith Cells 0 Urine Bacteria Few A Hyaline Casts 7 H Urine Mucus Few A Ur Culture Indicated? yes 03/26/22 03/26/22 03/26/22 13:28 13:28 13:28 WBC RBC Hgb Hct POC Hct MCV MCH MCHC RDW Plt Count MPV Immature Gran % (Auto) Neut % (Auto) Lymph % (Auto) [place] % (Auto) Eos % (Auto) Baso % (Auto) Lymph # (Auto) [place] # (Auto) Eos # (Auto) Baso # (Auto) Immature Gran # Absolute Neutrophils PT 18.3 H INR 1.5 H APTT 41.5 H POC Sodium Sodium POC Potassium Potassium POC Chloride Chloride Carbon Dioxide POC Total CO2 Anion Gap POC BUN BUN Creatinine POC Creatinine GFR Calculation Glucose POC Glucose Uric Acid Calcium POC WB Ioniz Calcium Phosphorus Magnesium 1.7 Total Bilirubin 2.4 H Direct Bilirubin 1.2 H GGT AST 159 H ALT 92 H Alkaline Phosphatase 337 H Ammonia Lactate Dehydrogenase Total Protein 6.8 Albumin 2.0 L Globulin 4.8 H Albumin/Globulin Ratio Prealbumin < 3.0 L Triglycerides Lipase 115 H Urine Color Urine Appearance Urine pH Ur Specific [place] Urine Protein Urine Glucose (UA) Urine Ketones Urine Occult Blood Urine Nitrate Urine Bilirubin Urine Urobilinogen Ur Leukocyte Esterase Urine RBC Urine WBC Ur Squamous Epith Cells Urine Bacteria Hyaline Casts Urine Mucus Ur Culture Indicated? 03/26/22 13:09 WBC RBC Hgb Hct POC Hct 29.0 L MCV MCH MCHC RDW Plt Count MPV Immature Gran % (Auto) Neut % (Auto) Lymph % (Auto) [place] % (Auto) Eos % (Auto) Baso % (Auto) Lymph # (Auto) [place] # (Auto) Eos # (Auto) Baso # (Auto) Immature Gran # Absolute Neutrophils PT INR APTT POC Sodium 126 L Sodium POC Potassium 5.5 H Potassium POC Chloride 98 Chloride Carbon Dioxide POC Total CO2 21.0 L Anion Gap POC BUN 24 H BUN Creatinine POC Creatinine 1.1 GFR Calculation Glucose POC Glucose 89 Uric Acid Calcium POC WB Ioniz Calcium 1.02 L Phosphorus Magnesium Total Bilirubin Direct Bilirubin GGT AST ALT Alkaline Phosphatase Ammonia Lactate Dehydrogenase Total Protein Albumin Globulin Albumin/Globulin Ratio Prealbumin Triglycerides Lipase Urine Color Urine Appearance Urine pH Ur Specific [place] Urine Protein Urine Glucose (UA) Urine Ketones Urine Occult Blood Urine Nitrate Urine Bilirubin Urine Urobilinogen Ur Leukocyte Esterase Urine RBC Urine WBC Ur Squamous Epith Cells Urine Bacteria Hyaline Casts Urine Mucus Ur Culture Indicated? Discharge Plan Patient/Caregiver Discharge Instructions Activity: increase activity as tolerated Diet: Consistent Carbohydrate Prescriptions: Continued (DME) OneTouch Verio test strips Strip See Rx Instructions .Route Qty: 100 6RF Rx Instructions: Testing up to 2x daily furosemide [Lasix] 40 mg tablet 40 mg PO QAM Qty: 30 3RF metformin 500 mg tablet extended release 24 hr 500 mg PO QDAY 90 Days Qty: 90 2RF (DME) SHOWER CHAIR See Rx Instructions .Route .MEDSUPPLY Qty: 1 0RF Rx Instructions: As directed cholecalciferol (vitamin D3) 25 mcg (1,000 unit) capsule 25 mcg PO QDAY methocarbamol 750 mg tablet 750 mg PO DAILY PRN (Reason: Muscle Spasm) lactulose [Constulose] 10 gram/15 mL solution 45 ml PO QID amiloride 5 mg tablet 5 mg PO QID omeprazole 20 mg capsule,delayed release(DR/EC) See Rx Instructions .ROUTE .COMPLEX Rx Instructions: take 1 capsule by mouth every morning ON AN EMPTY STOMACH 30 MINUTES BEFORE BREAKFAST thiamine HCl (vitamin B1) 100 mg tablet 1 tab PO QAM folic acid 1 mg tablet 1 tab PO QAM multivitamin with folic acid [Thera] 400 mcg tablet 1 tab PO QAM Adults Multivitamin tablet 1 tab PO DAILY Label Comments: Brand name: One-A-Day for men omega-3 fatty acids-vitamin E 1,000 mg Capsule 1 cap PO DAILY saw palmetto 450 mg Capsule 450 mg PO DAILY tamsulosin 0.4 mg capsule 1 cap PO QAM Discontinued potassium chloride 20 mEq tablet extended release 1 tab PO BID Follow Up Plan Follow up with: Evelyn Ramos ARNP [Primary Care Provider] - Patient Disposition: Home, Self-Care Prognosis: Undetermined Overall status at discharge: patient is progressing back to baseline
[2022-03-28] MEDS: 0.9 % SODIUM CHLORIDE 10 ML SYRINGE IV SCH ×3 (05:50→20:06)
[2022-03-28 07:28] LABS: Blood Urea Nitrogen 17 mg/dL (6-20); Calcium 8.2 mg/dL (8.6-10.4); Carbon Dioxide 21 mmol/L (22-30); Chloride 97 mmol/L (96-108); Glomerular Filtration Rate 93; Glucose 86 mg/dL (70-105)
--- NOTE | 2022-03-28 07:49 | EKG ---
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
[2022-03-28] MEDS: INSULIN LISPRO 1 UNIT/0.01 ML UNIT SQ SCH ×4 (07:50→20:05)
[2022-03-28] MEDS ORDERED: ALBUMIN HUMAN 12.5 GM/50 ML BAG IV ONE (07:56)
[2022-03-28] MEDS ORDERED: FUROSEMIDE 40 MG/4 ML VIAL IV ONE (07:56)
--- NOTE | 2022-03-28 07:58 | Internal Med Progress Note ---
SUBJECTIVE Subjective Patient information: Note initiated : 03/28/22 at 7:54 am Service Date, if different from initiated Date: [] Patient: Mauro Sevilla a 57 y/o M admitted on 03/26/22 for faiure to thrive. Chief Complaint: [] Interval history: History of present illness: Mr. Sevilla is a 57 year old M Patient brought in by EMS for failure to thrive weakness lethargy and confusion. I believe his sister called the ambulance. Sister had to leave and so history is obtained from the chart and the patient, who is a poor historian. Per the notes she is become increasingly weak and lethargic and unable to move. Sister also reported that he had some confusion this morning. Sounds like the patient and sister are in discussion with the PCP about day hospice evaluation, they have not committed to hospice want to have an informational. Patient was recently at [facility] in February for 3 days for Hepatic Encephalopathy. He is on lactulose which was decreased not too long ago because of hypokalemia. He was also prescribed rifaximin but has not been taking that because of the cost. He started seeing Dr. Rocha who is trying to figure out a way to get him rifaximin. Patient has been going to [facility] every week to get paracentesis done, the last one was done on the with 3 L. Patient history of nonalcoholic fatty liver disease with subsequent cirrhosis and multiple episodes of hepatic encephalopathy. He has a history of noncompliance with his lactulose. In the ER labs show a hemoglobin of 10 with platelets of 73. INR 1.5 sodium of 126 with a history of mild chronic hyponatremia likely related to cirrhosis. And mild hyperkalemia 5.5 with a BUN 24 and creatinine 1.1. Elevated bilirubin and transaminases which are similar to her previous labs. Ammonia level was 91. Urinalysis with leukocyte esterase WBCs. 03/27 Says he slept well and was feeling about the same as yesterday. Ammonia level r esponded to the lactulose. Sodium 127. Restarting Lasix. Titrate lactulose to 2-3 soft bowel meds per day. 03/28 Patient states he is feeling reasonably well. No overnight event or new complaints. However sodium dropped to 125. We will give a little extra diuresis today. Review of Systems: denies headache/fever/chills/nausea/vomiting/chest or abdominal pain/cough/dyspnea. Otherwise see above. Constitutional Vitals: Vital Signs Temp Pulse Resp BP Pulse Ox O2 Del Method O2 Flow Rate 97.6 F 91 H 13 101/65 95 0 03/28/22 00:00 03/28/22 06:01 03/28/22 06:01 03/28/22 06:01 03/28/22 06:01 03/28/22 06:01 03/26/22 18:30 Period Temp Pulse Resp BP Sys/Dee Pulse Ox O2 Del Method O2 Flow Rate Last 24 Hr 97.6 F-98.8 F 89-101 9-28 93-109/57-69 93-100 Room Air-Room Air Intake and Output 03/27/22 03/28/22 03/28/22 22:59 05:59 13:59 Intake Total Output Total Balance Weight Intake & Output: Intake & Output 03/27/22 03/28/22 03/28/22 22:59 05:59 13:59 Intake Total Output Total Balance Weight Intake: Oral Output: Void Amount Urine/Stool Mix Other: Urine Appearance Urine Color Stool Size Stool Consistency # Bowel Movements Exam: General: Alert, Awake, No acute Distress, cachexia including Temporalis muscle wasting Eyes/N/T: EOMI, Head/Neck: neck supple, CV: RRR, No murmurs, Pulm: Clear b/l, no wheezing/rhonchi/rales Abd: soft, mildly distended, nontender, +BS x4 Ext: no clubbing/cyanosis, trace-1+ b/l LE edema Neuro: Alert, no focal deficits, moves all extremities, Skin: warm/dry, gynecomastia OBJ DATA Labs CBC & Chem 7: 03/27/22 05:47 03/28/22 05:36 Labs: Abnormal Lab Results 03/28/22 03/27/22 03/27/22 05:36 05:47 05:47 WBC 11.2 H RBC 2.76 L Hgb 9.8 L Hct 27.9 L POC Hct MCV 101.1 H MCH 35.5 H RDW 15.5 H Plt Count 83 L Immature Gran % (Auto) 0.8 H Lymph % (Auto) 7.9 L Lymph # (Auto) 0.88 L [place] # (Auto) 1.28 H Immature Gran # 0.09 H Absolute Neutrophils 8.69 H PT INR APTT POC Sodium Sodium 125 L 127 L POC Potassium Carbon Dioxide 21 L 20 L POC Total CO2 Anion Gap 7.0 L POC BUN Calcium 8.2 L 8.5 L POC WB Ioniz Calcium Total Bilirubin 2.2 H Direct Bilirubin 1.2 H GGT 160 H AST 137 H ALT 86 H Alkaline Phosphatase 330 H Ammonia Albumin 1.9 L Globulin 4.9 H Albumin/Globulin Ratio 0.4 L Prealbumin Lipase Urine Appearance Urine Urobilinogen Ur Leukocyte Esterase Urine WBC Urine Bacteria Hyaline Casts Urine Mucus 03/26/22 03/26/22 03/26/22 14:20 13:34 13:29 WBC RBC 2.85 L Hgb 10.2 L Hct 28.8 L POC Hct MCV 101.1 H MCH 35.8 H RDW 14.8 H Plt Count 73 L Immature Gran % (Auto) 0.9 H Lymph % (Auto) 14.9 L Lymph # (Auto) 1.31 L [place] # (Auto) Immature Gran # 0.08 H Absolute Neutrophils PT INR APTT POC Sodium Sodium POC Potassium Carbon Dioxide POC Total CO2 Anion Gap POC BUN Calcium POC WB Ioniz Calcium Total Bilirubin Direct Bilirubin GGT AST ALT Alkaline Phosphatase Ammonia 91 H Albumin Globulin Albumin/Globulin Ratio Prealbumin Lipase Urine Appearance Cloudy A Urine Urobilinogen 2.0 A Ur Leukocyte Esterase 500 A Urine WBC 81 H Urine Bacteria Few A Hyaline Casts 7 H Urine Mucus Few A 03/26/22 03/26/22 03/26/22 13:28 13:28 13:28 WBC RBC Hgb Hct POC Hct MCV MCH RDW Plt Count Immature Gran % (Auto) Lymph % (Auto) Lymph # (Auto) [place] # (Auto) Immature Gran # Absolute Neutrophils PT 18.3 H INR 1.5 H APTT 41.5 H POC Sodium Sodium POC Potassium Carbon Dioxide POC Total CO2 Anion Gap POC BUN Calcium POC WB Ioniz Calcium Total Bilirubin 2.4 H Direct Bilirubin 1.2 H GGT AST 159 H ALT 92 H Alkaline Phosphatase 337 H Ammonia Albumin 2.0 L Globulin 4.8 H Albumin/Globulin Ratio Prealbumin < 3.0 L Lipase 115 H Urine Appearance Urine Urobilinogen Ur Leukocyte Esterase Urine WBC Urine Bacteria Hyaline Casts Urine Mucus 03/26/22 13:09 WBC RBC Hgb Hct POC Hct 29.0 L MCV MCH RDW Plt Count Immature Gran % (Auto) Lymph % (Auto) Lymph # (Auto) [place] # (Auto) Immature Gran # Absolute Neutrophils PT INR APTT POC Sodium 126 L Sodium POC Potassium 5.5 H Carbon Dioxide POC Total CO2 21.0 L Anion Gap POC BUN 24 H Calcium POC WB Ioniz Calcium 1.02 L Total Bilirubin Direct Bilirubin GGT AST ALT Alkaline Phosphatase Ammonia Albumin Globulin Albumin/Globulin Ratio Prealbumin Lipase Urine Appearance Urine Urobilinogen Ur Leukocyte Esterase Urine WBC Urine Bacteria Hyaline Casts Urine Mucus Meds: Medications Albuterol/Ipratropium (Ipratropium/Albuterol 3 Ml Ampul.Neb) 3 ml NEB Q4HP PRN PRN Reason: Shortness Of Breath Ceftriaxone Sodium (Ceftriaxone 1 Gm Vial) 1 gm IV Q24H [facility] Last Admin: 03/27/22 09:03 Dose: 1 gm Dextrose (Dextrose 50% 50 Ml Vial) 0 ml IV UD PRN PRN Reason: Per Sliding Scale Diagnostic Test (Pha) (Accu-Chek 1 Each Strip) 1 each FS ACHS [facility] Last Admin: 03/28/22 07:50 Dose: 1 each Enoxaparin Sodium (Enoxaparin 40 Mg/0.4 Ml Syringe) 40 mg SQ DAILY [facility] Last Admin: 03/27/22 10:36 Dose: 40 mg Famotidine (Famotidine 20 Mg Tablet) 20 mg PO BID [facility] Last Admin: 03/27/22 20:31 Dose: 20 mg Folic Acid (Folic Acid 1 Mg Tablet) 1 mg PO QAM [facility] Last Admin: 03/27/22 09:03 Dose: 1 mg Furosemide (Furosemide 40 Mg Tablet) 40 mg PO QAM [facility] Last Admin: 03/27/22 09:03 Dose: 40 mg Glucose (Dextrose 31 Gm Oral.Susp) 15 gm PO PRN PRN PRN Reason: Hypoglycemia Potassium Chloride 40 meq/ (Dextrose) 520 mls @ 130 mls/hr IV UD PRN PRN Reason: Potassium < 3 Magnesium Sulfate (Magnesium Sulfate) 2 gm in 50 mls @ 50 mls/hr IV UD PRN PRN Reason: Magnesium </= 1.6 Insulin Human Lispro (Insulin Lispro 1 Unit/0.01 Ml Unit) 0 unit SQ ACHS [facility]; Protocol Last Admin: 03/28/22 07:50 Dose: Not Given Lactulose (Lactulose 20 Gm/30 Ml Oral.Nikki) 20 gm PO TID [facility] Last Admin: 03/27/22 20:21 Dose: Not Given Lactulose (Lactulose 20 Gm/30 Ml Oral.Nikki) 20 gm PO Q2HP PRN PRN Reason: for 2-3 soft BM's per day Methocarbamol (Methocarbamol 750 Mg Tablet) 750 mg PO DAILY PRN PRN Reason: Muscle Spasm Ondansetron HCl (Ondansetron 4 Mg/2 Ml Vial) 4 mg IV Q4HP PRN PRN Reason: Nausea And Vomiting Potassium Chloride (Potassium Chloride 20 Meq Tablet) 40 meq PO UD PRN PRN Reason: Potssium is 3-3.5 Potassium Chloride (Potassium Chloride 20 Meq Tablet) 40 meq PO UD PRN PRN Reason: Potassium < 3 Sodium Chloride (0.9 % Sodium Chloride 10 Ml Syringe) 10 ml IV Q8 [facility] Last Admin: 03/28/22 05:50 Dose: 10 ml Tamsulosin HCl (Tamsulosin 0.4 Mg Capsule) 0.4 mg PO QAM [facility] Last Admin: 03/27/22 09:02 Dose: 0.4 mg Thiamine HCl (Thiamine 100 Mg Tablet) 100 mg PO DAILY [facility] Last Admin: 03/27/22 09:03 Dose: 100 mg A/P Narrative A/P Narrative: A: *Hepatic Encephalopathy, mild: *Failure to thrive/generalized weakness/deconditioning: *Severe protein calorie malnutrition: Muscle and fat loss -prealbumin<3 *Hyponatremia, acute on chronic: decreased *Hyperkalemia: on potassium sparing diuretics and kcl, improving *Volume depletion: improved *UTI(GNB): *NAFLD >> Cirrhsosis: -with sequelae of thrombocytopenia /coagulopathy/hyperbilirubinemia/transaminitis/hypoalbuminemia/anemia -MELD= 24(3-month mortality risk is 20%); CHILD-FLETCHER=class C(45&35%, 1&2- year survival rates) *Thrombocytopenia/Anemia: 2/2 above *Coagulopathy: *Hyperbilirubinemia/Transaminitis: 2/2 liver disease, stable *DM: *GERD: P: -lactulose -s/p IVF in ED, hold amiloride/klc for hyperkalemia -lasix -f/u sodium -dietary -f/u electrolytes -pt/ot -ssi -Rocephin, pending UC -CM and Hospice eval -ppx: lovenox (if plts<50k then hold) / Time Spent With Patient Time: Total time spent is greater than 50% in coordination of care (as documented) at patient's floor/unit and/or counseling patient: Total time spent with greater than 50% in coordination of care (as documented) at patient's floor/unit and/or counseling patient:: 25 - 35 minutes
[2022-03-28] MEDS: FOLIC ACID 1 MG TABLET PO SCH (08:29)
[2022-03-28] MEDS: ENOXAPARIN 40 MG/0.4 ML SYRINGE SQ SCH (08:29)
[2022-03-28] MEDS: TAMSULOSIN 0.4 MG CAPSULE PO SCH (08:29)
[2022-03-28] MEDS: LACTULOSE 20 GM/30 ML ORAL.SOL PO SCH ×3 (08:29→20:06)
[2022-03-28] MEDS: FAMOTIDINE 20 MG TABLET PO SCH ×2 (08:29→20:05)
[2022-03-28] MEDS: THIAMINE 100 MG TABLET PO SCH (08:29)
[2022-03-28] MEDS: cefTRIAXone 1 GM VIAL IV SCH (09:34)
[2022-03-28] MEDS: FUROSEMIDE 40 MG TABLET PO SCH (09:40)
[2022-03-28] MEDS: POTASSIUM CHLORIDE 20 MEQ TABLET PO PRN (20:05)
[2022-03-29] MEDS: 0.9 % SODIUM CHLORIDE 10 ML SYRINGE IV SCH ×3 (05:09→20:47)
[2022-03-29] MEDS: INSULIN LISPRO 1 UNIT/0.01 ML UNIT SQ SCH ×4 (07:29→20:47)
[2022-03-29 08:13] LABS: ALT/SGPT 78 U/L (<40); AST/SGOT 133 U/L (<40); Albumin 1.9 gm/dL (3.2-5.2); Albumin/Globulin Ratio 0.4 (1.0-2.3); Alkaline Phosphatase 323 U/L (39-117); Bilirubin,Direct 1.2 mg/dL (<0.3); Bilirubin,Total 2.2 mg/dL (0.1-1.0); Blood Urea Nitrogen 15 mg/dL (6-20); Carbon Dioxide 20 mmol/L (22-30); Chloride 97 mmol/L (96-108); Globulin 4.7 gm/dL (2.2-3.7); Glomerular Filtration Rate 82; Glucose 92 mg/dL (70-105); Lactate Dehydrogenase 193 U/L (135-225); Phosphorous 2.7 mg/dL (2.5-4.5); Triglycerides 53 mg/dL (<150); Uric Acid 5.5 mg/dL (2.5-8.0)
[2022-03-29] MEDS: THIAMINE 100 MG TABLET PO SCH (08:31)
[2022-03-29] MEDS: FUROSEMIDE 40 MG TABLET PO SCH (08:32)
[2022-03-29] MEDS: ENOXAPARIN 40 MG/0.4 ML SYRINGE SQ SCH (08:32)
[2022-03-29] MEDS: TAMSULOSIN 0.4 MG CAPSULE PO SCH (08:32)
[2022-03-29] MEDS: FOLIC ACID 1 MG TABLET PO SCH (08:32)
[2022-03-29] MEDS: FAMOTIDINE 20 MG TABLET PO SCH ×2 (08:32→20:46)
[2022-03-29] MEDS: cefTRIAXone 1 GM VIAL IV SCH (08:33)
[2022-03-29] MEDS: LACTULOSE 20 GM/30 ML ORAL.SOL PO SCH ×3 (09:41→20:46)
[2022-03-29] MEDS: POTASSIUM CHLORIDE 20 MEQ TABLET PO PRN (12:06)
[2022-03-29] MEDS ORDERED: POTASSIUM CHLORIDE 20 MEQ TABLET PO ONE (14:15)
[2022-03-29] MEDS ORDERED: MAGNESIUM SULFATE 2 GM/50 ML BAG IV ONE (14:16)
--- NOTE | 2022-03-29 14:54 | Internal Med Progress Note ---
SUBJECTIVE Subjective Patient information: Note initiated : 03/29/22 at 2:51 pm Service Date, if different from initiated Date: [] Patient: Mauro Sevilla 57 y/o M admitted on 03/26/22 for faiure to thrive. Chief Complaint: [] Interval history: 03/29 No significant events overnight, sodium 126, potassium 3.2. Urine culture grew E. coli, continues on ceftriaxone. Hepatic encephalopathy resolved, case management working on placement. Replaced potassium, started spironolactone 100 mg daily, continued Lasix 40 mg daily. Unclear why the patient was taking immediately arrived instead of spironolactone prior to admission. Physical exam Head: Atraumatic, normal inspection. Eyes: normal appearance, no scleral icterus. Neck: full ROM Respiratory: no respiratory distress. Cardiovascular: normal rate and rhythm, S1, S2. GI/Abdominal: Mildly distended, soft, nontender, no guarding. Extremities: Mild bilateral lower extremity pitting edema, full range of motion, nontender. Neurological: CN II-XII intact, intact motor, intact sensation. Psychiatric: normal mood. Skin: warm, normal color Constitutional Vitals: Vital Signs Temp Pulse Resp BP Pulse Ox O2 Del Method O2 Flow Rate 98.0 F 80 16 95/53 94 0 03/29/22 11:11 03/29/22 11:11 03/29/22 11:11 03/29/22 11:11 03/29/22 11:11 03/29/22 11:11 03/26/22 18:30 Period Temp Pulse Resp BP Sys/Dee Pulse Ox O2 Del Method O2 Flow Rate Last 24 Hr 97.9 F-98.9 F 80-94 14-16 86-117/53-69 93-99 Room Air-Room Air Intake and Output 03/29/22 03/29/22 03/29/22 05:59 13:59 21:59 Intake Total 700 120 50 Output Total 1550 200 Balance -850 -80 50 Intake & Output: Intake & Output 03/29/22 03/29/22 03/29/22 05:59 13:59 21:59 Intake Total 700 120 50 Output Total 1550 200 Balance -850 -80 50 Intake: Nourishment/Supplement quantity 0 (ml) IV 50 Oral 120 GI Tube Flush 700 Output: Void Amount 350 Urine/Stool Mix 200 Stool 1200 Other: Meal Breakfast Percent of Meal Consumed 100% Feeding Ability Assist with Tray Set Up Nourishment/Supplement name Ensure Stool Size Large Small Stool Color Brown Brown Keenan Colored Stool Consistency Liquid Watery # Bowel Movements 1 OBJ DATA Labs CBC & Chem 7: 03/27/22 05:47 03/29/22 05:30 Labs: Abnormal Lab Results 03/29/22 03/28/22 03/28/22 05:30 15:04 05:36 WBC RBC Hgb Hct MCV MCH RDW Plt Count Immature Gran % (Auto) Lymph % (Auto) Lymph # (Auto) [place] # (Auto) Immature Gran # Absolute Neutrophils Sodium 126 L 125 L 125 L Potassium 3.2 L Carbon Dioxide 20 L 21 L Anion Gap 7.0 L Calcium 8.0 L 8.2 L Magnesium 1.5 L Total Bilirubin 2.2 H Direct Bilirubin 1.2 H GGT 153 H AST 133 H ALT 78 H Alkaline Phosphatase 323 H Albumin 1.9 L Globulin 4.7 H Albumin/Globulin Ratio 0.4 L Prealbumin 03/27/22 03/27/22 03/26/22 05:47 05:47 13:28 WBC 11.2 H RBC 2.76 L Hgb 9.8 L Hct 27.9 L MCV 101.1 H MCH 35.5 H RDW 15.5 H Plt Count 83 L Immature Gran % (Auto) 0.8 H Lymph % (Auto) 7.9 L Lymph # (Auto) 0.88 L [place] # (Auto) 1.28 H Immature Gran # 0.09 H Absolute Neutrophils 8.69 H Sodium 127 L Potassium Carbon Dioxide 20 L Anion Gap Calcium 8.5 L Magnesium Total Bilirubin 2.2 H Direct Bilirubin 1.2 H GGT 160 H AST 137 H ALT 86 H Alkaline Phosphatase 330 H Albumin 1.9 L Globulin 4.9 H Albumin/Globulin Ratio 0.4 L Prealbumin < 3.0 L Meds: Medications Albuterol/Ipratropium (Ipratropium/Albuterol 3 Ml Ampul.Neb) 3 ml NEB Q4HP PRN PRN Reason: Shortness Of Breath Ceftriaxone Sodium (Ceftriaxone 1 Gm Vial) 1 gm IV Q24H [facility] Last Admin: 03/29/22 08:33 Dose: 1 gm Dextrose (Dextrose 50% 50 Ml Vial) 0 ml IV UD PRN PRN Reason: Per Sliding Scale Diagnostic Test (Pha) (Accu-Chek 1 Each Strip) 1 each FS ACHS [facility] Last Admin: 03/29/22 11:19 Dose: 1 each Enoxaparin Sodium (Enoxaparin 40 Mg/0.4 Ml Syringe) 40 mg SQ DAILY [facility] Last Admin: 03/29/22 08:32 Dose: 40 mg Famotidine (Famotidine 20 Mg Tablet) 20 mg PO BID [facility] Last Admin: 03/29/22 08:32 Dose: 20 mg Folic Acid (Folic Acid 1 Mg Tablet) 1 mg PO QAM [facility] Last Admin: 03/29/22 08:32 Dose: 1 mg Furosemide (Furosemide 40 Mg Tablet) 40 mg PO QAM [facility] Last Admin: 03/29/22 08:32 Dose: 40 mg Glucose (Dextrose 31 Gm Oral.Susp) 15 gm PO PRN PRN PRN Reason: Hypoglycemia Potassium Chloride 40 meq/ (Dextrose) 520 mls @ 130 mls/hr IV UD PRN PRN Reason: Potassium < 3 Magnesium Sulfate (Magnesium Sulfate) 2 gm in 50 mls @ 50 mls/hr IV UD PRN PRN Reason: Magnesium </= 1.6 Last Infusion: 03/29/22 14:29 Dose: Infused Magnesium Sulfate (Magnesium Sulfate) 2 gm in 50 mls @ 25 mls/hr IV ONCE ONE Stop: 03/29/22 16:15 Last Admin: 03/29/22 14:42 Dose: Not Given Insulin Human Lispro (Insulin Lispro 1 Unit/0.01 Ml Unit) 0 unit SQ ACHS [facility]; Protocol Last Admin: 03/29/22 11:21 Dose: Not Given Lactulose (Lactulose 20 Gm/30 Ml Oral.Nikki) 20 gm PO TID [facility] Last Admin: 03/29/22 09:41 Dose: Not Given Lactulose (Lactulose 20 Gm/30 Ml Oral.Nikki) 20 gm PO Q2HP PRN PRN Reason: for 2-3 soft BM's per day Methocarbamol (Methocarbamol 750 Mg Tablet) 750 mg PO DAILY PRN PRN Reason: Muscle Spasm Ondansetron HCl (Ondansetron 4 Mg/2 Ml Vial) 4 mg IV Q4HP PRN PRN Reason: Nausea And Vomiting Potassium Chloride (Potassium Chloride 20 Meq Tablet) 40 meq PO UD PRN PRN Reason: Potssium is 3-3.5 Last Admin: 03/29/22 12:06 Dose: 40 meq Potassium Chloride (Potassium Chloride 20 Meq Tablet) 40 meq PO UD PRN PRN Reason: Potassium < 3 Sodium Chloride (0.9 % Sodium Chloride 10 Ml Syringe) 10 ml IV Q8 [facility] Last Admin: 03/29/22 12:57 Dose: 10 ml Spironolactone (Spironolactone 25 Mg Tablet) 100 mg PO DAILY [facility] Tamsulosin HCl (Tamsulosin 0.4 Mg Capsule) 0.4 mg PO QAM [facility] Last Admin: 03/29/22 08:32 Dose: 0.4 mg Thiamine HCl (Thiamine 100 Mg Tablet) 100 mg PO DAILY [facility] Last Admin: 03/29/22 08:31 Dose: 100 mg A/P Narrative A/P Narrative: A: *Resolved hepatic Encephalopathy *Failure to thrive/generalized weakness/deconditioning: *Severe protein calorie malnutrition: Muscle and fat loss -prealbumin<3 *Hyponatremia, acute on chronic: decreased *Hyperkalemia: on potassium sparing diuretics and kcl, improving *Volume depletion: improved *UTI secondary to E. coli *Decompensated liver cirrhosis secondary to [place]: -with sequelae of thrombocytopenia/coagulopathy/hyperbilirubinemia/transaminitis/hypoalbuminemia/a nemia -MELD= 24(3-month mortality risk is 20%); CHILD-FLETCHER=class C(45&35%, 1&2- year survival rates) *Thrombocytopenia/Anemia: 2/2 above *Coagulopathy: *Hyperbilirubinemia/Transaminitis: 2/2 liver disease, stable *DM: *GERD: P: -lactulose -lasix and spironolactone for decompensated liver cirrhosis -f/u sodium -dietary -f/u electrolytes -pt/ot -ssi -Rocephin for UTI, treat 5 days. -CM and Hospice eval -ppx: lovenox (if plts<50k then hold) / Time Spent With Patient Time: Total time spent is greater than 50% in coordination of care (as documented) at patient's floor/unit and/or counseling patient:
[2022-03-29] MEDS ORDERED: aMILoride 5 MG TABLET PO SCH ×2 (17:00→21:00)
[2022-03-30] MEDS: 0.9 % SODIUM CHLORIDE 10 ML SYRINGE IV SCH ×3 (05:21→21:20)
[2022-03-30 07:01] LABS: Basophils # (Auto) 0.04 K/mcL (0.00-0.30); Basophils % (Auto) 0.5 % (0.0-2.0); Eosinophils % (Auto) 4.1 % (0.0-7.0); Hematocrit 25.7 % (40.1-51.0); Hemoglobin 8.9 g/dL (13.7-17.5); Lymphocytes % (Auto) 16.2 % (15.5-49.0); Mean Cell Volume 101.2 fL (80.0-100.0); Mean Corpuscular HGB Conc 34.6 g/dL (31.0-36.0); Mean Platelet Volume 9.8 fL (8.8-12.5); Monocytes # (Auto) 0.89 K/mcL (0.10-0.90); Neutrophils % (Auto) 66.3 % (38.0-78.0); Platelet Count 72 K/mcL (140-440); RBC 2.54 M/mcL (4.63-6.08); Red Cell Distribution Width 14.6 % (11.5-14.5); WBC 7.4 K/mcL (4.5-11.0)
[2022-03-30] MEDS: INSULIN LISPRO 1 UNIT/0.01 ML UNIT SQ SCH ×4 (07:23→20:44)
[2022-03-30 07:40] LABS: ALT/SGPT 75 U/L (<40); AST/SGOT 131 U/L (<40); Albumin 1.9 gm/dL (3.2-5.2); Albumin/Globulin Ratio 0.4 (1.0-2.3); Alkaline Phosphatase 323 U/L (39-117); Bilirubin,Direct 0.9 mg/dL (<0.3); Bilirubin,Total 1.6 mg/dL (0.1-1.0); Blood Urea Nitrogen 14 mg/dL (6-20); Calcium 7.9 mg/dL (8.6-10.4); Carbon Dioxide 21 mmol/L (22-30); Chloride 97 mmol/L (96-108); Globulin 4.5 gm/dL (2.2-3.7); Glomerular Filtration Rate 93; Glucose 98 mg/dL (70-105); Lactate Dehydrogenase 184 U/L (135-225); Phosphorous 2.1 mg/dL (2.5-4.5); Triglycerides 45 mg/dL (<150); Uric Acid 5.5 mg/dL (2.5-8.0)
[2022-03-30] MEDS: TAMSULOSIN 0.4 MG CAPSULE PO SCH (08:47)
[2022-03-30] MEDS: FAMOTIDINE 20 MG TABLET PO SCH ×2 (08:47→20:44)
[2022-03-30] MEDS: THIAMINE 100 MG TABLET PO SCH (08:47)
[2022-03-30] MEDS: SPIRONOLACTONE 25 MG TABLET PO SCH (08:47)
[2022-03-30] MEDS: cefTRIAXone 1 GM VIAL IV SCH (08:47)
[2022-03-30] MEDS: ENOXAPARIN 40 MG/0.4 ML SYRINGE SQ SCH (08:47)
[2022-03-30] MEDS: FUROSEMIDE 40 MG TABLET PO SCH (08:48)
[2022-03-30] MEDS: LACTULOSE 20 GM/30 ML ORAL.SOL PO SCH ×3 (08:48→20:44)
[2022-03-30] MEDS: FOLIC ACID 1 MG TABLET PO SCH (08:48)
--- NOTE | 2022-03-30 12:56 | Internal Med Progress Note ---
SUBJECTIVE Subjective Patient information: Note initiated : 03/30/22 at 12:52 pm Service Date, if different from initiated Date: [] Patient: Mauro Sevilla 57 y/o M admitted on 03/26/22 for faiure to thrive. Chief Complaint: [] Interval history: 03/29 No significant events overnight, sodium 126, potassium 3.2. Urine culture grew E. coli, continues on ceftriaxone. Hepatic encephalopathy resolved, case management working on placement. Replaced potassium, started spironolactone 100 mg daily, continued Lasix 40 mg daily. Unclear why the patient was taking amiloride instead of spironolactone prior to admission. 03/30 No significant events overnight, sodium stable, potassium and magnesium normal. Continues on lactulose, had at least 4 bowel movements. Tolerating the addition of spironolactone well. Leukocytosis resolved. Awaiting placement. Physical exam Head: Atraumatic, normal inspection. Eyes: normal appearance, no scleral icterus. Neck: full ROM Respiratory: no respiratory distress. Cardiovascular: normal rate and rhythm, S1, S2. GI/Abdominal: Mildly distended, soft, nontender, no guarding. Extremities: Mild bilateral lower extremity pitting edema, full range of motion, nontender. Neurological: CN II-XII intact, intact motor, intact sensation. Psychiatric: normal mood. Skin: warm, normal color Constitutional Vitals: Vital Signs Temp Pulse Resp BP Pulse Ox O2 Del Method O2 Flow Rate 98.3 F 76 16 93/56 93 0 03/30/22 07:25 03/30/22 07:25 03/30/22 07:25 03/30/22 07:25 03/30/22 07:25 03/30/22 07:25 03/26/22 18:30 Period Temp Pulse Resp BP Sys/Dee Pulse Ox O2 Del Method O2 Flow Rate Last 24 Hr 97.4 F-98.9 F 76-88 12-16 83-94/47-56 93-98 Room Air-Room Air Intake and Output 03/29/22 03/30/22 03/30/22 21:59 05:59 13:59 Intake Total 1290 1100 Output Total 950 775 Balance 340 325 Weight 64.002 kg Intake & Output: Intake & Output 03/29/22 03/30/22 03/30/22 21:59 05:59 13:59 Intake Total 1290 1100 Output Total 950 775 Balance 340 325 Weight 64.002 kg Intake: Nourishment/Supplement quantity 240 (ml) IV 50 Oral 1000 300 GI Tube Flush 800 Output: Void Amount 200 Urine/Stool Mix 750 400 Stool 375 Other: Meal Lunch Percent of Meal Consumed 25% Feeding Ability Independent Nourishment/Supplement name Ensure Urine Appearance Clear Urine Color Yellow Yellow Stool Size Small Stool Color Brown Brown Yellow Yellow Yellow Stool Consistency Liquid Liquid Liquid Loose Loose # Bowel Movements 1 1 OBJ DATA Labs CBC & Chem 7: 03/30/22 05:37 03/30/22 05:37 Labs: Abnormal Lab Results 03/30/22 03/30/22 03/29/22 05:37 05:37 05:30 RBC 2.54 L Hgb 8.9 L Hct 25.7 L MCV 101.2 H MCH 35.0 H RDW 14.6 H Plt Count 72 L Immature Gran % (Auto) 0.9 H Lymph # (Auto) 1.20 L Immature Gran # 0.07 H Sodium 127 L 126 L Potassium 3.2 L Carbon Dioxide 21 L 20 L Anion Gap Calcium 7.9 L 8.0 L Phosphorus 2.1 L Magnesium 1.5 L Total Bilirubin 1.6 H 2.2 H Direct Bilirubin 0.9 H 1.2 H GGT 145 H 153 H AST 131 H 133 H ALT 75 H 78 H Alkaline Phosphatase 323 H 323 H Albumin 1.9 L 1.9 L Globulin 4.5 H 4.7 H Albumin/Globulin Ratio 0.4 L 0.4 L 03/28/22 03/28/22 15:04 05:36 RBC Hgb Hct MCV MCH RDW Plt Count Immature Gran % (Auto) Lymph # (Auto) Immature Gran # Sodium 125 L 125 L Potassium Carbon Dioxide 21 L Anion Gap 7.0 L Calcium 8.2 L Phosphorus Magnesium Total Bilirubin Direct Bilirubin GGT AST ALT Alkaline Phosphatase Albumin Globulin Albumin/Globulin Ratio Meds: Medications Albuterol/Ipratropium (Ipratropium/Albuterol 3 Ml Ampul.Neb) 3 ml NEB Q4HP PRN PRN Reason: Shortness Of Breath Ceftriaxone Sodium (Ceftriaxone 1 Gm Vial) 1 gm IV Q24H [facility] Last Admin: 03/30/22 08:47 Dose: 1 gm Dextrose (Dextrose 50% 50 Ml Vial) 0 ml IV UD PRN PRN Reason: Per Sliding Scale Diagnostic Test (Pha) (Accu-Chek 1 Each Strip) 1 each FS ACHS [facility] Last Admin: 03/30/22 11:17 Dose: 1 each Enoxaparin Sodium (Enoxaparin 40 Mg/0.4 Ml Syringe) 40 mg SQ DAILY [facility] Last Admin: 03/30/22 08:47 Dose: 40 mg Famotidine (Famotidine 20 Mg Tablet) 20 mg PO BID [facility] Last Admin: 03/30/22 08:47 Dose: 20 mg Folic Acid (Folic Acid 1 Mg Tablet) 1 mg PO QAM [facility] Last Admin: 03/30/22 08:48 Dose: 1 mg Furosemide (Furosemide 40 Mg Tablet) 40 mg PO QAM [facility] Last Admin: 03/30/22 08:48 Dose: 40 mg Glucose (Dextrose 31 Gm Oral.Susp) 15 gm PO PRN PRN PRN Reason: Hypoglycemia Potassium Chloride 40 meq/ (Dextrose) 520 mls @ 130 mls/hr IV UD PRN PRN Reason: Potassium < 3 Magnesium Sulfate (Magnesium Sulfate) 2 gm in 50 mls @ 50 mls/hr IV UD PRN PRN Reason: Magnesium </= 1.6 Last Infusion: 03/29/22 14:29 Dose: Infused Insulin Human Lispro (Insulin Lispro 1 Unit/0.01 Ml Unit) 0 unit SQ [facility]; Protocol Last Admin: 03/30/22 11:20 Dose: Not Given Lactulose (Lactulose 20 Gm/30 Ml Oral.Nikki) 20 gm PO TID [facility] Last Admin: 03/30/22 08:48 Dose: Not Given Lactulose (Lactulose 20 Gm/30 Ml Oral.Nikki) 20 gm PO Q2HP PRN PRN Reason: for 2-3 soft BM's per day Methocarbamol (Methocarbamol 750 Mg Tablet) 750 mg PO DAILY PRN PRN Reason: Muscle Spasm Ondansetron HCl (Ondansetron 4 Mg/2 Ml Vial) 4 mg IV Q4HP PRN PRN Reason: Nausea And Vomiting Potassium Chloride (Potassium Chloride 20 Meq Tablet) 40 meq PO UD PRN PRN Reason: Potssium is 3-3.5 Last Admin: 03/29/22 12:06 Dose: 40 meq Potassium Chloride (Potassium Chloride 20 Meq Tablet) 40 meq PO UD PRN PRN Reason: Potassium < 3 Sodium Chloride (0.9 % Sodium Chloride 10 Ml Syringe) 10 ml IV Q8 [facility] Last Admin: 03/30/22 05:21 Dose: 10 ml Spironolactone (Spironolactone 25 Mg Tablet) 100 mg PO DAILY [facility] Last Admin: 03/30/22 08:47 Dose: 100 mg Tamsulosin HCl (Tamsulosin 0.4 Mg Capsule) 0.4 mg PO QAM [facility] Last Admin: 03/30/22 08:47 Dose: 0.4 mg Thiamine HCl (Thiamine 100 Mg Tablet) 100 mg PO DAILY [facility] Last Admin: 03/30/22 08:47 Dose: 100 mg A/P Narrative A/P Narrative: A: *Failure to thrive/generalized weakness/deconditioning: *Severe protein calorie malnutrition: Muscle and fat loss -prealbumin<3 *Hyponatremia, acute on chronic: decreased *UTI secondary to E. coli *Resolved hepatic Encephalopathy *Decompensated liver cirrhosis secondary to FRENCH: -with sequelae of thrombocytopenia/coagulopathy/hyperbilirubinemia/transaminitis/hypoalbuminemia/a nemia -MELD= 24(3-month mortality risk is 20%); CHILD-FLETCHER=class C(45&35%, 1&2- year survival rates) *Thrombocytopenia/Anemia: 2/2 above *Coagulopathy: *Hyperbilirubinemia/Transaminitis: 2/2 liver disease, stable *DM: *GERD: P: -lactulose-target 2-3 bowel movements per day. -lasix and spironolactone for decompensated liver cirrhosis -Follow sodium, potassium, renal function. -Nutrition following. -pt/ot -Humalog SSIlow. -Rocephin for UTI, treat 5 days. -CM and Hospice eval -Awaiting placement. -ppx: lovenox (if plts<50k then hold) -Disposition: SNF pending placement/insurance authorization. Follow-up with GI for ongoing coordination with a liver transplant program. Patient is in the process of establishing with a rehab director occupational therapist to be evaluated for liver transplant. Time Spent With Patient Time: Total time spent is greater than 50% in coordination of care (as documented) at patient's floor/unit and/or counseling patient:
[2022-03-31] MEDS ORDERED: HALOPERIDOL LACTATE 5 MG/ML VIAL IV PRN (02:34)
[2022-03-31] MEDS: 0.9 % SODIUM CHLORIDE 10 ML SYRINGE IV SCH ×2 (05:11→17:10)
[2022-03-31] MEDS: INSULIN LISPRO 1 UNIT/0.01 ML UNIT SQ SCH ×4 (06:57→21:32)
[2022-03-31 07:05] LABS: Carbon Dioxide 21 mmol/L (22-30)
[2022-03-31] MEDS ORDERED: FUROSEMIDE 40 MG TABLET PO SCH (09:00)
[2022-03-31] MEDS ORDERED: SPIRONOLACTONE 25 MG TABLET PO SCH (09:00)
[2022-03-31] MEDS: LACTULOSE 20 GM/30 ML ORAL.SOL PO SCH ×3 (10:07→21:32)
[2022-03-31] MEDS: ENOXAPARIN 40 MG/0.4 ML SYRINGE SQ SCH (10:34)
[2022-03-31] MEDS: FOLIC ACID 1 MG TABLET PO SCH (10:35)
[2022-03-31] MEDS: cefTRIAXone 1 GM VIAL IV SCH (10:35)
[2022-03-31] MEDS: FAMOTIDINE 20 MG TABLET PO SCH ×2 (10:35→21:34)
[2022-03-31] MEDS: SPIRONOLACTONE 25 MG TABLET PO SCH (10:57)
[2022-03-31] MEDS: FUROSEMIDE 40 MG TABLET PO SCH (10:57)
[2022-03-31] MEDS: THIAMINE 100 MG TABLET PO SCH (11:00)
[2022-03-31] MEDS: TAMSULOSIN 0.4 MG CAPSULE PO SCH (11:00)
[2022-03-31 13:41] LABS: Albumin 1.9 gm/dL (3.2-5.2); Blood Urea Nitrogen 12 mg/dL (6-20); Calcium 7.8 mg/dL (8.6-10.4); Carbon Dioxide 22 mmol/L (22-30); Chloride 89 mmol/L (96-108); Glomerular Filtration Rate 98; Glucose 110 mg/dL (70-105); Phosphorous 1.7 mg/dL (2.5-4.5)
[2022-03-31] MEDS ORDERED: SODIUM CHLORIDE 3% IV SCH (13:50)
[2022-03-31 15:32] LABS: ALT/SGPT 63 U/L (<40); AST/SGOT 108 U/L (<40); Albumin 1.7 gm/dL (3.2-5.2); Albumin/Globulin Ratio 0.4 (1.0-2.3); Alkaline Phosphatase 276 U/L (39-117); Bilirubin,Direct 0.9 mg/dL (<0.3); Bilirubin,Total 1.7 mg/dL (0.1-1.0); Blood Urea Nitrogen 12 mg/dL (6-20); Calcium 7.8 mg/dL (8.6-10.4); Chloride 94 mmol/L (96-108); Glomerular Filtration Rate 84; Glucose 80 mg/dL (70-105); Lactate Dehydrogenase 166 U/L (135-225); Triglycerides 50 mg/dL (<150); Uric Acid 5.3 mg/dL (2.5-8.0)
--- NOTE | 2022-03-31 15:59 | Internal Med Progress Note ---
SUBJECTIVE Subjective Patient information: Note initiated : 03/31/22 at 3:57 pm Service Date, if different from initiated Date: [] Patient: Mauro Sevilla 57 y/o M admitted on 03/26/22 for faiure to thrive. Chief Complaint: [] Interval history: 03/29 No significant events overnight, sodium 126, potassium 3.2. Urine culture grew E. coli, continues on ceftriaxone. Hepatic encephalopathy resolved, case management working on placement. Replaced potassium, started spironolactone 100 mg daily, continued Lasix 40 mg daily. Unclear why the patient was taking amiloride instead of spironolactone prior to admission. 03/30 No significant events overnight, sodium stable, potassium and magnesium normal. Continues on lactulose, had at least 4 bowel movements. Tolerating the addition of spironolactone well. Leukocytosis resolved. Awaiting placement. 03/31 Blood pressure low so held diuretics today, the patient is not symptomatic from hypotension. Reduced Lasix to 20 and Spironolactone to 50 mg for tomorrow. Sodium level decreased to 118, 100 mg 3% hypertonic IV saline given, will follow sodium until stable. Renal function stable. Hemoglobin stable. Case management working on placement. Physical exam Head: Atraumatic, normal inspection. Eyes: normal appearance, no scleral icterus. Neck: full ROM Respiratory: no respiratory distress. Cardiovascular: normal rate and rhythm, S1, S2. GI/Abdominal: Mildly distended, soft, nontender, no guarding. Extremities: Mild bilateral lower extremity pitting edema, full range of motion, nontender. Neurological: CN II-XII intact, intact motor, intact sensation. Psychiatric: normal mood. Skin: warm, normal color Constitutional Vitals: Vital Signs Temp Pulse Resp BP Pulse Ox O2 Del Method O2 Flow Rate 98.2 F 84 20 87/53 90 0 03/31/22 12:00 03/31/22 11:45 03/31/22 12:00 03/31/22 12:00 03/31/22 12:00 03/31/22 12:00 03/26/22 18:30 Period Temp Pulse Resp BP Sys/Dee Pulse Ox O2 Del Method O2 Flow Rate Last 24 Hr 98.0 F-98.7 F 78-85 12-20 81-97/45-61 90-97 Nasal Cannula-Room Air Intake and Output 03/31/22 03/31/22 03/31/22 05:59 13:59 21:59 Intake Total 450 100 Output Total 625 Balance -175 100 Weight 63.911 kg Patient Weight 04/01/22 05:59 Weight 63.911 kg Intake & Output: Intake & Output 03/31/22 03/31/22 03/31/22 05:59 13:59 21:59 Intake Total 450 100 Output Total 625 Balance -175 100 Weight 63.911 kg Intake: Nourishment/Supplement quantity 0 (ml) IV 100 Sodium Chloride 3% 100 ml 100 Emptybag 0 ml @ 300 mls/hr IV 1350 [facility] Rx#:[id number] Oral 450 Output: Void Amount 625 Other: Meal Nourishment/Supplement Nourishment/Supplement name Ensure Urine Color Dark Suzi OBJ DATA Labs CBC & Chem 7: 03/31/22 12:30 03/31/22 12:30 Labs: Abnormal Lab Results 03/31/22 03/31/22 03/31/22 12:30 12:30 05:11 RBC Hgb 9.1 L 8.6 L Hct MCV MCH RDW Plt Count Immature Gran % (Auto) Lymph # (Auto) Immature Gran # Sodium 118 L* Potassium Chloride 89 L Carbon Dioxide Anion Gap 7.0 L Glucose 110 H Calcium 7.8 L Phosphorus 1.7 L Magnesium Total Bilirubin Direct Bilirubin GGT AST ALT Alkaline Phosphatase Total Protein Albumin 1.9 L Globulin Albumin/Globulin Ratio 03/31/22 03/30/22 03/30/22 05:11 05:37 05:37 RBC 2.54 L Hgb 8.9 L Hct 25.7 L MCV 101.2 H MCH 35.0 H RDW 14.6 H Plt Count 72 L Immature Gran % (Auto) 0.9 H Lymph # (Auto) 1.20 L Immature Gran # 0.07 H Sodium 123 L 127 L Potassium Chloride 94 L Carbon Dioxide 21 L 21 L Anion Gap Glucose Calcium 7.8 L 7.9 L Phosphorus 2.0 L 2.1 L Magnesium Total Bilirubin 1.7 H 1.6 H Direct Bilirubin 0.9 H 0.9 H GGT 132 H 145 H AST 108 H 131 H ALT 63 H 75 H Alkaline Phosphatase 276 H 323 H Total Protein 5.7 L Albumin 1.7 L 1.9 L Globulin 4.0 H 4.5 H Albumin/Globulin Ratio 0.4 L 0.4 L 03/29/22 05:30 RBC Hgb Hct MCV MCH RDW Plt Count Immature Gran % (Auto) Lymph # (Auto) Immature Gran # Sodium 126 L Potassium 3.2 L Chloride Carbon Dioxide 20 L Anion Gap Glucose Calcium 8.0 L Phosphorus Magnesium 1.5 L Total Bilirubin 2.2 H Direct Bilirubin 1.2 H GGT 153 H AST 133 H ALT 78 H Alkaline Phosphatase 323 H Total Protein Albumin 1.9 L Globulin 4.7 H Albumin/Globulin Ratio 0.4 L Meds: Medications Albuterol/Ipratropium (Ipratropium/Albuterol 3 Ml Ampul.Neb) 3 ml NEB Q4HP PRN PRN Reason: Shortness Of Breath Ceftriaxone Sodium (Ceftriaxone 1 Gm Vial) 1 gm IV Q24H [facility] Stop: 03/31/22 20:59 Last Admin: 03/31/22 10:35 Dose: 1 gm Dextrose (Dextrose 50% 50 Ml Vial) 0 ml IV UD PRN PRN Reason: Per Sliding Scale Diagnostic Test (Pha) (Accu-Chek 1 Each Strip) 1 each FS ACHS [facility] Last Admin: 03/31/22 11:21 Dose: 1 each Enoxaparin Sodium (Enoxaparin 40 Mg/0.4 Ml Syringe) 40 mg SQ DAILY [facility] Last Admin: 03/31/22 10:34 Dose: 40 mg Famotidine (Famotidine 20 Mg Tablet) 20 mg PO BID [facility] Last Admin: 03/31/22 10:35 Dose: 20 mg Folic Acid (Folic Acid 1 Mg Tablet) 1 mg PO QAM [facility] Last Admin: 03/31/22 10:35 Dose: 1 mg Furosemide (Furosemide 40 Mg Tablet) 20 mg PO QAM [facility] Last Admin: 03/31/22 10:07 Dose: Not Given Glucose (Dextrose 31 Gm Oral.Susp) 15 gm PO PRN PRN PRN Reason: Hypoglycemia Potassium Chloride 40 meq/ (Dextrose) 520 mls @ 130 mls/hr IV UD PRN PRN Reason: Potassium < 3 Magnesium Sulfate (Magnesium Sulfate) 2 gm in 50 mls @ 50 mls/hr IV UD PRN PRN Reason: Magnesium </= 1.6 Last Infusion: 03/29/22 14:29 Dose: Infused Sodium Chloride/ [id number] 100 mls @ 300 mls/hr IV 1350 [facility] Stop: 03/31/22 16:00 Last Infusion: 03/31/22 15:27 Dose: Infused Potassium Phosphate 20 meq/ (Dextrose) 254.5455 mls @ 127.273 mls/hr IV ONCE ONE Stop: 03/31/22 17:49 Insulin Human Lispro (Insulin Lispro 1 Unit/0.01 Ml Unit) 0 unit SQ ACHS [facility]; Protocol Last Admin: 03/31/22 11:22 Dose: Not Given Lactulose (Lactulose 20 Gm/30 Ml Oral.Nikki) 20 gm PO TID [facility] Last Admin: 03/31/22 13:13 Dose: Not Given Lactulose (Lactulose 20 Gm/30 Ml Oral.Nikki) 20 gm PO Q2HP PRN PRN Reason: for 2-3 soft BM's per day Methocarbamol (Methocarbamol 750 Mg Tablet) 750 mg PO DAILY PRN PRN Reason: Muscle Spasm Ondansetron HCl (Ondansetron 4 Mg/2 Ml Vial) 4 mg IV Q4HP PRN PRN Reason: Nausea And Vomiting Potassium Chloride (Potassium Chloride 20 Meq Tablet) 40 meq PO UD PRN PRN Reason: Potssium is 3-3.5 Last Admin: 03/29/22 12:06 Dose: 40 meq Potassium Chloride (Potassium Chloride 20 Meq Tablet) 40 meq PO UD PRN PRN Reason: Potassium < 3 Sodium Chloride (0.9 % Sodium Chloride 10 Ml Syringe) 10 ml IV Q8 [facility] Last Admin: 03/31/22 05:11 Dose: 10 ml Spironolactone (Spironolactone 25 Mg Tablet) 50 mg PO DAILY [facility] Last Admin: 03/31/22 10:08 Dose: Not Given Tamsulosin HCl (Tamsulosin 0.4 Mg Capsule) 0.4 mg PO QAM [facility] Last Admin: 03/31/22 11:00 Dose: 0.4 mg Thiamine HCl (Thiamine 100 Mg Tablet) 100 mg PO DAILY [facility] Last Admin: 03/31/22 11:00 Dose: 100 mg A/P Narrative A/P Narrative: A: *Failure to thrive/generalized weakness/deconditioning: *Severe protein calorie malnutrition: Muscle and fat loss -prealbumin<3 *Hyponatremia, acute on chronic: decreased *UTI secondary to E. coli *Resolved hepatic Encephalopathy *Decompensated liver cirrhosis secondary to FRENCH: -with sequelae of thrombocytopenia/coagulopathy/hype rbilirubinemia/transaminitis/hypoalbuminemia/anemia -MELD= 24(3-month mortality risk is 20%); CHILD-FLETCHER=class C(45&35%, 1&2- year survival rates) *Thrombocytopenia/Anemia: 2/2 above *Coagulopathy: *Hyperbilirubinemia/Transaminitis: 2/2 liver disease, stable *DM: *GERD: P: -lactulose-target 2-3 bowel movements per day. -lasix and spironolactone for decompensated liver cirrhosis, titrate as tole rated -Follow sodium, potassium, renal function. -Nutrition following. -pt/ot -Humalog SSIlow. -Complete 5 days of Rocephin for UTI. -CM working on placement. -ppx: lovenox (if plts<50k then hold) -Disposition: SNF pending placement/insurance authorization. Follow-up with GI for ongoing coordination with a liver transplant program. Patient is in the process of establishing with a turn sewer to be evaluated for liver transplant. Time Spent With Patient Time: Total time spent is greater than 50% in coordination of care (as documented) at patient's floor/unit and/or counseling patient:
[2022-03-31] MEDS ORDERED: POTASSIUM PHOSPHATE 20 MEQ in DEXTROSE 5% IN WATER 250 ML IV SCH (16:30)
[2022-03-31 17:54] LABS: ALT/SGPT 63 U/L (<40); AST/SGOT 111 U/L (<40); Albumin 1.9 gm/dL (3.2-5.2); Albumin/Globulin Ratio 0.5 (1.0-2.3); Alkaline Phosphatase 283 U/L (39-117); Bilirubin,Direct 0.9 mg/dL (<0.3); Bilirubin,Total 1.6 mg/dL (0.1-1.0); Blood Urea Nitrogen 12 mg/dL (6-20); Calcium 7.9 mg/dL (8.6-10.4); Carbon Dioxide 22 mmol/L (22-30); Chloride 90 mmol/L (96-108); Globulin 3.8 gm/dL (2.2-3.7); Glomerular Filtration Rate 93; Glucose 145 mg/dL (70-105); Lactate Dehydrogenase 188 U/L (135-225); Phosphorous 1.6 mg/dL (2.5-4.5); Triglycerides 47 mg/dL (<150)
[2022-03-31] MEDS ORDERED: SODIUM CHLORIDE 3 % 100 ML IV ONE (18:28)
[2022-03-31] MEDS ORDERED: SODIUM CHLORIDE 3 % 500 ML IV ONE (19:23)
[2022-04-01] MEDS: 0.9 % SODIUM CHLORIDE 10 ML SYRINGE IV SCH ×4 (00:08→20:18)
[2022-04-01] MEDS: INSULIN LISPRO 1 UNIT/0.01 ML UNIT SQ SCH ×4 (07:15→20:18)
[2022-04-01 07:28] LABS: ALT/SGPT 62 U/L (<40); AST/SGOT 106 U/L (<40); Albumin 1.7 gm/dL (3.2-5.2); Albumin/Globulin Ratio 0.4 (1.0-2.3); Alkaline Phosphatase 280 U/L (39-117); Bilirubin,Direct 0.9 mg/dL (<0.3); Bilirubin,Total 1.6 mg/dL (0.1-1.0); Blood Urea Nitrogen 10 mg/dL (6-20); Calcium 7.9 mg/dL (8.6-10.4); Carbon Dioxide 21 mmol/L (22-30); Chloride 93 mmol/L (96-108); Glomerular Filtration Rate 98; Glucose 77 mg/dL (70-105); Lactate Dehydrogenase 188 U/L (135-225); Phosphorous 2.4 mg/dL (2.5-4.5); Triglycerides 51 mg/dL (<150); Uric Acid 4.9 mg/dL (2.5-8.0)
[2022-04-01] MEDS: FAMOTIDINE 20 MG TABLET PO SCH ×2 (08:57→20:18)
[2022-04-01] MEDS: THIAMINE 100 MG TABLET PO SCH (08:57)
[2022-04-01] MEDS: TAMSULOSIN 0.4 MG CAPSULE PO SCH (08:57)
[2022-04-01] MEDS: FOLIC ACID 1 MG TABLET PO SCH (08:57)
[2022-04-01] MEDS: ENOXAPARIN 40 MG/0.4 ML SYRINGE SQ SCH (08:57)
[2022-04-01] MEDS: LACTULOSE 20 GM/30 ML ORAL.SOL PO SCH ×3 (10:34→20:18)
--- NOTE | 2022-04-01 19:01 | Internal Med Progress Note ---
SUBJECTIVE Subjective Patient information: Note initiated : 04/01/22 at 6:58 pm Service Date, if different from initiated Date: [] Patient: Mauro Sevilla 57 y/o M admitted on 03/26/22 for faiure to thrive. Chief Complaint: [] Interval history: 03/29 No significant events overnight, sodium 126, potassium 3.2. Urine culture grew E. coli, continues on ceftriaxone. Hepatic encephalopathy resolved, case management working on placement. Replaced potassium, started spironolactone 100 mg daily, continued Lasix 40 mg daily. Unclear why the patient was taking amiloride instead of spironolactone prior to admission. 03/30 No significant events overnight, sodium stable, potassium and magnesium normal. Continues on lactulose, had at least 4 bowel movements. Tolerating the addition of spironolactone well. Leukocytosis resolved. Awaiting placement. 03/31 Blood pressure low so held diuretics today, the patient is not symptomatic from hypotension. Reduced diuretics to Lasix to 20 milligrams and Spironolactone to 50 mg daily for tomorrow. Sodium level decreased to 118, 100 mg 3% hypertonic IV saline given, will follow sodium until stable. Renal function stable. Hemoglobin stable. Case management working on placement. 04/01 No significant events overnight, sodium improved to 123. Patient tolerated the reduced diuretic doses well. Case management reports that the patient will had a retirement facility bed tomorrow. M Physical exam Head: Atraumatic, normal inspection. Eyes: normal appearance, no scleral icterus. Neck: full ROM Respiratory: no respiratory distress. Cardiovascular: normal rate and rhythm, S1, S2. GI/Abdominal: Mildly distended, soft, nontender, no guarding. Extremities: Mild bilateral lower extremity pitting edema, full range of motion, nontender. Neurological: CN II-XII intact, intact motor, intact sensation. Psychiatric: normal mood. Skin: warm, normal color Constitutional Vitals: Vital Signs Temp Pulse Resp BP Pulse Ox O2 Del Method O2 Flow Rate 98.5 F 82 16 94/56 94 0 04/01/22 18:31 04/01/22 18:31 04/01/22 18:31 04/01/22 18:31 04/01/22 18:31 04/01/22 18:31 03/26/22 18:30 Period Temp Pulse Resp BP Sys/Dee Pulse Ox O2 Del Method O2 Flow Rate Last 24 Hr 97.3 F-98.6 F 66-82 12-16 92-96/52-69 91-97 Room Air-Room Air Intake and Output 04/01/22 04/01/22 04/01/22 05:59 13:59 21:59 Intake Total 354.5455 Output Total 350 400 Balance 4.5455 -400 Intake & Output: Intake & Output 04/01/22 04/01/22 04/01/22 05:59 13:59 21:59 Intake Total 354.5455 Output Total 350 400 Balance 4.5455 -400 Intake: IV 254.5455 Potassium Phosphate 20 Meq In 254.5455 Dextrose 5% in Water 250 ml @ 31.818 mls/hr IV 1630 [facility] Rx#: [id number] Oral 100 Output: Void Amount 350 400 Other: Urine Appearance Clear Urine Color Dark Suzi Light Suzi OBJ DATA Labs CBC & Chem 7: 03/31/22 12:30 04/01/22 05:11 Labs: Abnormal Lab Results 04/01/22 03/31/22 03/31/22 05:11 22:00 16:00 RBC Hgb Hct MCV MCH RDW Plt Count Immature Gran % (Auto) Lymph # (Auto) Immature Gran # Sodium 123 L 119 L* 119 L* Chloride 93 L 90 L Carbon Dioxide 21 L Anion Gap 7.0 L Glucose 145 H Calcium 7.9 L 7.9 L Phosphorus 2.4 L 1.6 L Total Bilirubin 1.6 H 1.6 H Direct Bilirubin 0.9 H 0.9 H GGT 137 H 134 H AST 106 H 111 H ALT 62 H 63 H Alkaline Phosphatase 280 H 283 H Total Protein 5.7 L 5.7 L Albumin 1.7 L 1.9 L Globulin 4.0 H 3.8 H Albumin/Globulin Ratio 0.4 L 0.5 L 03/31/22 03/31/22 03/31/22 12:30 12:30 05:11 RBC Hgb 9.1 L 8.6 L Hct MCV MCH RDW Plt Count Immature Gran % (Auto) Lymph # (Auto) Immature Gran # Sodium 118 L* Chloride 89 L Carbon Dioxide Anion Gap 7.0 L Glucose 110 H Calcium 7.8 L Phosphorus 1.7 L Total Bilirubin Direct Bilirubin GGT AST ALT Alkaline Phosphatase Total Protein Albumin 1.9 L Globulin Albumin/Globulin Ratio 11/09/22 11/08/22 11/08/22 05:11 05:37 05:37 RBC 2.54 L Hgb 8.9 L Hct 25.7 L MCV 101.2 H MCH 35.0 H RDW 14.6 H Plt Count 72 L Immature Gran % (Auto) 0.9 H Lymph # (Auto) 1.20 L Immature Gran # 0.07 H Sodium 123 L 127 L Chloride 94 L Carbon Dioxide 21 L 21 L Anion Gap Glucose Calcium 7.8 L 7.9 L Phosphorus 2.0 L 2.1 L Total Bilirubin 1.7 H 1.6 H Direct Bilirubin 0.9 H 0.9 H GGT 132 H 145 H AST 108 H 131 H ALT 63 H 75 H Alkaline Phosphatase 276 H 323 H Total Protein 5.7 L Albumin 1.7 L 1.9 L Globulin 4.0 H 4.5 H Albumin/Globulin Ratio 0.4 L 0.4 L Meds: Medications Albuterol/Ipratropium (Ipratropium/Albuterol 3 Ml Ampul.Neb) 3 ml NEB Q4HP PRN PRN Reason: Shortness Of Breath Dextrose (Dextrose 50% 50 Ml Vial) 0 ml IV UD PRN PRN Reason: Per Sliding Scale Diagnostic Test (Pha) (Accu-Chek 1 Each Strip) 1 each FS ACHS [facility] Last Admin: 04/01/22 18:03 Dose: 1 each Enoxaparin Sodium (Enoxaparin 40 Mg/0.4 Ml Syringe) 40 mg SQ DAILY [facility] Last Admin: 04/01/22 08:57 Dose: 40 mg Famotidine (Famotidine 20 Mg Tablet) 20 mg PO BID [facility] Last Admin: 04/01/22 08:57 Dose: 20 mg Folic Acid (Folic Acid 1 Mg Tablet) 1 mg PO QAM [facility] Last Admin: 04/01/22 08:57 Dose: 1 mg Glucose (Dextrose 31 Gm Oral.Susp) 15 gm PO PRN PRN PRN Reason: Hypoglycemia Potassium Chloride 40 meq/ (Dextrose) 520 mls @ 130 mls/hr IV UD PRN PRN Reason: Potassium < 3 Magnesium Sulfate (Magnesium Sulfate) 2 gm in 50 mls @ 50 mls/hr IV UD PRN PRN Reason: Magnesium </= 1.6 Last Infusion: 03/29/22 14:29 Dose: Infused Insulin Human Lispro (Insulin Lispro 1 Unit/0.01 Ml Unit) 0 unit SQ ACHS [facility]; Protocol Last Admin: 04/01/22 18:03 Dose: Not Given Lactulose (Lactulose 20 Gm/30 Ml Oral.Nikki) 20 gm PO TID [facility] Last Admin: 04/01/22 16:00 Dose: 20 gm Lactulose (Lactulose 20 Gm/30 Ml Oral.Nikki) 20 gm PO Q2HP PRN PRN Reason: for 2-3 soft BM's per day Methocarbamol (Methocarbamol 750 Mg Tablet) 750 mg PO DAILY PRN PRN Reason: Muscle Spasm Ondansetron HCl (Ondansetron 4 Mg/2 Ml Vial) 4 mg IV Q4HP PRN PRN Reason: Nausea And Vomiting Potassium Chloride (Potassium Chloride 20 Meq Tablet) 40 meq PO UD PRN PRN Reason: Potssium is 3-3.5 Last Admin: 03/29/22 12:06 Dose: 40 meq Potassium Chloride (Potassium Chloride 20 Meq Tablet) 40 meq PO UD PRN PRN Reason: Potassium < 3 Sodium Chloride (0.9 % Sodium Chloride 10 Ml Syringe) 10 ml IV Q8 [facility] Last Admin: 04/01/22 16:00 Dose: 10 ml Tamsulosin HCl (Tamsulosin 0.4 Mg Capsule) 0.4 mg PO QAM [facility] Last Admin: 04/01/22 08:57 Dose: 0.4 mg Thiamine HCl (Thiamine 100 Mg Tablet) 100 mg PO DAILY [facility] Last Admin: 04/01/22 08:57 Dose: 100 mg A/P Narrative A/P Narrative: A: *Failure to thrive/generalized weakness/deconditioning: *Severe protein calorie malnutrition: Muscle and fat loss -prealbumin<3 *Hyponatremia, acute on chronic: *UTI secondary to E. coli: Completed antibiotic *Resolved hepatic Encephalopathy *Decompensated liver cirrhosis secondary to FRENCH: -with sequelae of thrombocytopenia/coagulopathy/hyperbilirubinemia/trans aminitis/hypoalbuminemia/anemia -MELD= 24(3-month mortality risk is 20%); CHILD-FLETCHER=class C(45&35%, 1&2- year survival rates) *Thrombocytopenia/Anemia: 2/2 above *Coagulopathy: *Hyperbilirubinemia/Transaminitis: 2/2 liver disease, stable *DM: *GERD: P: -lactulose-target 2-3 bowel movements per day. -Lasix and spironolactone for decompensated liver cirrhosis, dose reduced due to hypotension -Follow sodium, potassium, renal function. -Nutrition following. -pt/ot -Humalog SSIlow. -Completed 5 days of Rocephin for UTI. -CM working on placement. -ppx: lovenox (if plts<50k then hold) -Disposition: SNF pending placement/insurance authorization. Follow-up with GI for ongoing coordination with a liver transplant program. Patient is in the process of establishing with a seo strategist to be evaluated for liver transplant. Time Spent With Patient Time: Total time spent is greater than 50% in coordination of care (as documented) at patient's floor/unit and/or counseling patient:
[2022-04-02] MEDS: 0.9 % SODIUM CHLORIDE 10 ML SYRINGE IV SCH (05:25)
[2022-04-02] MEDS: INSULIN LISPRO 1 UNIT/0.01 ML UNIT SQ SCH ×2 (07:27→11:24)
[2022-04-02 07:47] LABS: ALT/SGPT 67 U/L (<40); AST/SGOT 116 U/L (<40); Albumin/Globulin Ratio 0.5 (1.0-2.3); Alkaline Phosphatase 310 U/L (39-117); Bilirubin,Total 1.9 mg/dL (0.1-1.0); Blood Urea Nitrogen 11 mg/dL (6-20); Calcium 8.2 mg/dL (8.6-10.4); Carbon Dioxide 21 mmol/L (22-30); Chloride 93 mmol/L (96-108); Globulin 3.9 gm/dL (2.2-3.7); Glomerular Filtration Rate 93; Glucose 77 mg/dL (70-105); Lactate Dehydrogenase 223 U/L (135-225); Phosphorous 2.8 mg/dL (2.5-4.5); Triglycerides 50 mg/dL (<150); Uric Acid 4.8 mg/dL (2.5-8.0)
[2022-04-02] MEDS: LACTULOSE 20 GM/30 ML ORAL.SOL PO SCH (08:11)
[2022-04-02] MEDS: TAMSULOSIN 0.4 MG CAPSULE PO SCH (08:11)
[2022-04-02] MEDS: ENOXAPARIN 40 MG/0.4 ML SYRINGE SQ SCH (08:11)
[2022-04-02] MEDS: FAMOTIDINE 20 MG TABLET PO SCH (08:12)
[2022-04-02] MEDS: FOLIC ACID 1 MG TABLET PO SCH (08:12)
[2022-04-02] MEDS: THIAMINE 100 MG TABLET PO SCH (08:12)
--- NOTE | 2022-04-02 10:22 | Discharge Summary ---
Discharge Provider Provider IMPORTANT FOLLOW-UP INFORMATION FOR PCP: Patient information: Note initiated : 04/02/22 at 10:20 am Service Date, if different from initiated Date: [] Patient: Mauro Sevilla 57 y/o M admitted on 03/26/22 for faiure to thrive. Chief Complaint: [] Date of admission: 03/26/22 17:30 Discharge date: 04/02/22 Primary care physician: ANTHONY Parsons Consults: 03/26/22 Consult to Physician [CONS] Stat Comment: Consulting Provider: Severiano Castañeda Reason For Exam: Physician to Consult COURSE Hospital Course Hospital course: Mr. Sevilla is a 57 year old M Patient brought in by EMS for failure to thrive weakness lethargy and confusion. I believe his sister called the ambulance. Sister had to leave and so history is obtained from the chart and the patient, who is a poor historian. Per the notes she is become increasingly weak and lethargic and unable to move. Sister also reported that he had some confusion this morning. Sounds like the patient and sister are in discussion with the PCP about day hospice evaluation, they have not committed to hospice want to have an informational. Patient was recently at [facility] in February for 3 days for Hepatic Encephalopathy. He is on lactulose which was decreased not too long ago because of hypokalemia. He was also prescribed rifaximin but has not been taking that because of the cost. He started seeing Dr. Rocha who is trying to figure out a way to get him rifaximin. Patient has been going to [facility] every week to get paracentesis done, the last one was done on the with 3 L. Patient history of nonalcoholic fatty liver disease with subsequent cirrhosis and multiple episodes of hepatic encephalopathy. He has a history of noncompliance with his lactulose. In the ER labs show a hemoglobin of 10 with platelets of 73. INR 1.5 sodium of 126 with a history of mild chronic hyponatremia likely related to cirrhosis. And mild hyperkalemia 5.5 with a BUN 24 and creatinine 1.1. Elevated bilirubin and transaminases which are similar to her previous labs. Ammonia level was 91. Urinalysis with leukocyte esterase WBCs. 03/27 Says he slept well and was feeling about the same as yesterday. Ammonia level responded to the lactulose. Sodium 127. Restarting Lasix. Titrate lactulose to 2-3 soft bowel meds per day. 03/28 Patient states he is feeling reasonably well. No overnight event or new complaints. However sodium dropped to 125. We will give a little extra diuresis today. 03/29 No significant events overnight, sodium 126, potassium 3.2. Urine culture grew E. coli, continues on ceftriaxone. Hepatic encephalopathy resolved, case management working on placement. Replaced potassium, started spironolactone 100 mg daily, continued Lasix 40 mg daily. Unclear why the patient was taking amiloride instead of spironolactone prior to admission. 03/30 No significant events overnight, sodium stable, potassium and magnesium normal. Continues on lactulose, had at least 4 bowel movements. Tolerating the addition of spironolactone well. Leukocytosis resolved. Awaiting placement. 03/31 Blood pressure low so held diuretics today, the patient is not symptomatic from hypotension. Reduced diuretics to Lasix to 20 milligrams and Spironolactone to 50 mg daily for tomorrow. Sodium level decreased to 118, 100 mg 3% hypertonic IV saline given, will follow sodium until stable. Renal function stable. Hemoglobin stable. Case management working on placement. 04/01 No significant events overnight, sodium improved to 123. Patient tolerated the reduced diuretic doses well. Case management reports that the patient will had a snf facility bed tomorrow. 04/02 No significant events overnight, the patient tolerated Lasix and spironolactone well. Sodium stable at 123, continue fluid restriction. Discharged to low intensity rehab at snf facility. Physical exam Head: Atraumatic, normal inspection. Eyes: normal appearance, no scleral icterus. Neck: full ROM Respiratory: no respiratory distress. Cardiovascular: normal rate and rhythm, S1, S2. GI/Abdominal: Mildly distended, soft, nontender, no guarding. Extremities: Mild bilateral lower extremity pitting edema, full range of motion, nontender. Neurological: CN II-XII intact, intact motor, intact sensation. Psychiatric: normal mood. Skin: warm, normal color Discharge diagnosis: Hepatic encephalopathy Secondary discharge diagnosis: Failure to thrive UTI secondary to E. coli Time Spent with Patient Time attestation: Total time spent providing and/or coordinating discharge services: Time spent: Greater than 30 minutes EXAM Constitutional Vitals: Temp Pulse Resp BP Pulse Ox O2 Del Method O2 Flow Rate 98.1 F 72 12 96/58 95 0 04/02/22 07:17 04/02/22 07:17 04/02/22 07:17 04/02/22 07:17 04/02/22 07:17 04/02/22 07:17 03/26/22 18:30 Discharge Data Data Completed and Pending Labs on day of discharge: Labs from last 24 hours 04/02/22 05:12 Sodium 123 L Potassium 3.5 Chloride 93 L Carbon Dioxide 21 L Anion Gap 9.0 BUN 11 Creatinine 0.9 GFR Calculation 93 Glucose 77 Uric Acid 4.8 Calcium 8.2 L Phosphorus 2.8 Magnesium 1.8 Total Bilirubin 1.9 H Direct Bilirubin 1.0 H GGT 148 H AST 116 H ALT 67 H Alkaline Phosphatase 310 H Lactate Dehydrogenase 223 Total Protein 5.9 Albumin 2.0 L Globulin 3.9 H Albumin/Globulin Ratio 0.5 L Triglycerides 50 Discharge Plan Patient/Caregiver Discharge Instructions Activity: increase activity as tolerated Diet: Low Sodium (2gm) and Consistent Carbohydrate Activity Restrictions/Additional Instructions: Titrate lactulose for at least 3 loose bowel movements per day. Paracentesis as needed for recurrent ascites due to liver cirrhosis. Fluid restriction 1800 mL/day. Low-sodium diet. Prescriptions: New furosemide [Lasix] 20 mg tablet 20 mg PO QAM Qty: 60 4RF spironolactone 50 mg tablet 50 mg PO QAM Qty: 60 5RF Continued (DME) OneTouch Verio test strips Strip See Rx Instructions .Route Qty: 100 6RF Rx Instructions: Testing up to 2x daily metformin 500 mg tablet extended release 24 hr 500 mg PO QDAY 90 Days Qty: 90 2RF (DME) SHOWER CHAIR See Rx Instructions .Route .MEDSUPPLY Qty: 1 0RF Rx Instructions: As directed cholecalciferol (vitamin D3) 25 mcg (1,000 unit) capsule 25 mcg PO QDAY methocarbamol 750 mg tablet 750 mg PO DAILY PRN (Reason: Muscle Spasm) lactulose [Constulose] 10 gram/15 mL solution 45 ml PO QID omeprazole 20 mg capsule,delayed release(DR/EC) See Rx Instructions .ROUTE .COMPLEX Rx Instructions: take 1 capsule by mouth every morning ON AN EMPTY STOMACH 30 MINUTES BEFORE BREAKFAST thiamine HCl (vitamin B1) 100 mg tablet 1 tab PO QAM folic acid 1 mg tablet 1 tab PO QAM multivitamin with folic acid [Thera] 400 mcg tablet 1 tab PO QAM Adults Multivitamin tablet 1 tab PO DAILY Label Comments: Brand name: One-A-Day for men omega-3 fatty acids-vitamin E 1,000 mg Capsule 1 cap PO DAILY saw palmetto 450 mg Capsule 450 mg PO DAILY tamsulosin 0.4 mg capsule 1 cap PO QAM Discontinued furosemide [Lasix] 40 mg tablet 40 mg PO QAM Qty: 30 3RF amiloride 5 mg tablet 5 mg PO QID potassium chloride 20 mEq tablet extended release 1 tab PO BID Follow Up Plan Follow up with: Evelyn Ramos ARNP [Primary Care Provider] - Patient Disposition: Xfer SNF Prognosis: Undetermined Rehab Potential: Fair I certify that the patient requires SNF services: Yes Overall status at discharge: patient is progressing back to baseline Discharge Orders: Discharge Order (Routine); Ordered 04/02/22 Ordered By: Bradford Zacarias
== END 2022-04-02 13:15 | DRG 441 ==
LOC: ED 12:56 → ICU 17:30 → MEDSUR 03-28 14:40
PROVIDERS: ADMIT Internal Medicine; ATTEND Internal Medicine